=== PATIENT | male | born 1930 | race Caucasian/White ===

== ENCOUNTER 2018-03-26 11:17 | Inpatient (IN) | payer MEDICARE, OTHER ==
[2018-03-26 11:50] LABS: #Basophils 0.1 thou/uL (0.0-0.2); #Eosinphils 0.2 thou/uL (0.0-0.7); #Lymphocytes 3.7 thou/uL (1.20-3.40); #Monocytes 0.9 thou/uL (0.11-0.59); #Neutrophils 9.6 thou/uL (1.40-6.50); %Basophils 0.6 % (0.0-1.0); %Eosinophils 1.2 % (0.0-10.0); %Lymphocytes 25.6 % (21.0-51.0); %Monocytes 6.2 % (0.0-10.0); %Neutrophils 66.5 % (42.0-75.0); Hemoglobin 9.5 g/dL (14.0-18.0); Mean Corpuscular HGB CONC 31.7 g/dL (32.0-36.0); Mean Corpuscular Hemoglobin 27.3 pg (27.0-31.0); Mean Corpuscular Volume 86.3 fL (78.0-98.0); Mean Platelet Volume 9.1 fL (7.4-10.4); Platelet Count 301 thou/uL (130-400); RBC Distribution Width 18.9 % (11.5-14.5); Red Blood Cell (RBC) Count 3.49 mill/uL (4.70-6.10); White Blood Cell (WBC) Count 14.5 thou/uL (4.8-10.8)
[2018-03-26 12:05] LABS: INR-International Normal Ratio 2.5; Prothrombin Time 27.4 SEC (12.0-14.7)
[2018-03-26] MEDS ORDERED: Pantoprazole 40 MG VIAL ONE (12:10)
[2018-03-26 12:13] LABS: ALT (SGPT) 22 U/L (8-55); AST (SGOT) 26 U/L (5-34); Albumin 2.8 g/dL (3.4-4.8); Alkaline Phosphatase 75 U/L (40-150); Anion Gap 13 mmol/L (10-20); BUN (Urea Nitrogen) 42 mg/dL (8.4-25.7); Bilirubin, Total 0.4 mg/dL (0.2-1.2); Calc. Creatinine Clearance 0 mL/min (70-130); Calcium 8.2 mg/dL (7.8-10.44); Carbon Dioxide 22 mmol/L (23-31); Chloride 108 mmol/L (98-107); Estimated GFR-MDRD 48; Globulin 2.9 g/dL (2.4-3.5); Glucose 110 mg/dL (83-110); Potassium 5.2 mmol/L (3.5-5.1); Protein, Total 5.7 g/dL (5.8-8.1); Sodium 138 mmol/L (136-145)
[2018-03-26] MEDS ORDERED: Pantoprazole 80 MG in Sodium Chloride 0.9% 100 ML IVP SCH (12:15)
[2018-03-26 12:16] LABS: Iron 54 ug/dL (65-175); Iron Binding Capacity, Total 275 mcg/dL (261-462)
[2018-03-26 12:22] LABS: PTT 47.4 SEC (22.9-36.1)
[2018-03-26] MEDS ORDERED: ADMIXTURE FEE IV SCH ×2 (12:30→12:45)
[2018-03-26] MEDS ORDERED: HUMAN PROTHROMBIN COMPLX IV SCH ×2 (12:30→12:45)
--- NOTE | 2018-03-26 13:13 | RAD ---
CHEST ONE VIEW: INDICATIONS: History of hemoptysis. COMPARISON: 08/09/2017 FINDINGS/IMPRESSION: There is a persistent right pleural effusion. Mild cardiomegaly is stable. Post CABG changes are st able. The left lung is clear. The osseous structures are unremarkable appearing. IMPRESSION: 1. Persistent small right pleural effusion. No additional changes seen from the comparison dated . 2. Stable mild cardiomegaly. POS: ELIZABETH
[2018-03-26] MEDS ORDERED: Ondansetron PF 4 MG/2 ML Vial ONE (13:33)
[2018-03-26] MEDS ORDERED: Pantoprazole 80 MG in Sodium Chloride 0.9% 100 ML IVPB SCH (14:33)
[2018-03-26] MEDS: Sodium Chloride 0.9% 1,000 ML IV SCH (15:24)
[2018-03-26 16:04] VITALS: BMI 30.2
[2018-03-26 16:09] LABS: Hemoglobin 9.5 g/dL (14.0-18.0)
[2018-03-26 20:19] LABS: Hemoglobin 9.6 g/dL (14.0-18.0)
[2018-03-26] MEDS: ALPRAZolam 0.5 MG TAB PO SCH (20:54)
[2018-03-26 23:20] LABS: Hemoglobin 8.8 g/dL (14.0-18.0)
[2018-03-27 05:44] LABS: Hemoglobin 8.7 g/dL (14.0-18.0)
[2018-03-27 05:47] LABS: INR-International Normal Ratio 1.4; Prothrombin Time 17.4 SEC (12.0-14.7)
[2018-03-27 05:48] LABS: PTT 37.7 SEC (22.9-36.1)
[2018-03-27] MEDS: Sodium Chloride 0.9% 1,000 ML IV SCH ×2 (07:35→10:42)
--- NOTE | 2018-03-27 07:51 | CON ---
DATE OF CONSULTATION: HISTORY OF PRESENT ILLNESS: The patient is an 87-year-old male, who was in normal state of health until today when he had a large amount of blood emesis. Prior to that, he did not have any abdominal pain. He had a large black bowel movement, but had none prior to this. He has a long history of gastroesophageal reflux and esophageal strictures. He is not on anything for gastroesophageal reflux disease. He takes apple cider vinegar, which he says controls his problem. PAST MEDICAL HISTORY: Includes atrial fibrillation, on Xarelto; gastroesophageal reflux disease; esophageal strictures; congestive heart failure; sleep apnea; hypertension; and hyperlipidemia. PAST SURGICAL HISTORY: Includes a BKA and coronary artery bypass. ALLERGIES: NO KNOWN MEDICAL ALLERGIES. MEDICATIONS: Include; 1. Alprazolam 0.5 mg 1 p.o. at bedtime. 2. Aspirin 81 mg 1 p.o. daily. 3. Furosemide 20 mg 1 p.o. daily. 4. Irbesartan 150 mg p.o. once daily. 5. Levaquin 500 mg 1 p.o. daily. 6. Metoprolol 25 mg b.i.d. 7. Lexapro 20 mg 1 p.o. daily. 8. Xarelto 20 mg 1 p.o. daily. SOCIAL HISTORY: He is presently living in a nursing facility. He does not smoke or drink. FAMILY HISTORY: Negative for GI or liver disease. REVIEW OF SYSTEMS: CONSTITUTIONAL: No fever or chills. No weight loss. EYES: No blurred vision or double vision. ENT: No sore throat or earaches. CARDIOVASCULAR: No chest pain or palpitation. PULMONARY: No shortness of breath, cough, or wheezing. GI: See above. : No hematuria or dysuria. MUSCULOSKELETAL: No joint pain or muscle weakness. SKIN: No rashes. NEUROLOGIC: No numbness or seizure activity. PHYSICAL EXAMINATION: GENERAL: Shows a well-developed, well-nourished white male, in no acute distress. VITAL SIGNS: Pulse is 67, blood pressure 126/70, respiratory rate 22, and he is afebrile. HEENT: Unremarkable. NECK: Supple. CHEST: Clear. CARDIOVASCULAR: Regular rate and rhythm. ABDOMEN: Soft and nontender without organomegaly or masses. Bowel sounds present, normoactive. RECTAL: Deferred. EXTREMITIES: Normal. NEUROLOGIC: Nonfocal. LABORATORY DATA: Shows white blood cell count of 14.5, hemoglobin 9.5, and hematocrit 30.1. PT is 27.4 with an INR of 2.5. Chemistries show a potassium 5.2, CO2 of 22, BUN 42, and creatinine 1.40. Iron is 54 with a TIBC 275 and ferritin is 22.7. ASSESSMENT: 1. Hematemesis with melena. 2. History of gastroesophageal reflux disease and esophageal strictures. 3. Atrial fibrillation, on Xarelto. 4. Coronary artery disease. RECOMMENDATIONS: 1. Protonix drip. 2. Agree with reversal of Xarelto. 3. EGD in a.m. unless begins acutely bleed, then we will need to do sooner. 4. Clear-liquid diet. Job ID: [id number]
--- NOTE | 2018-03-27 07:51 | HP ---
CHIEF COMPLAINT: Vomiting blood and passing melena through the rectum. HISTORY OF PRESENT ILLNESS: The patient is an 87-year-old male, assisted resident, who was found to have blood vomiting and melena this morning. He was transferred to the emergency room at [facility] in [place], where he was found to be hypotensive, and since he is anticoagulated with Xarelto with elevated PT, INR, and APTT, the antidote medications are ordered, and he is getting admitted to the hospital for further management of his problem. PAST MEDICAL HISTORY: 1. Hypertension. 2. CHF. 3. GERD. 4. Hyperlipidemia. 5. Peripheral vascular disease. 6. Coronary artery disease. 7. Chronic atrial fibrillation. PAST SURGICAL HISTORY: 1. Fem-pop. 2. Right [id number]-[id number] amputation. 3. CABG x3. MEDICATIONS: 1. Irbesartan 150 mg once a day. 2. Metoprolol tartrate 25 mg twice a day. 3. Furosemide 20 mg once a day. 4. Lexapro 20 mg every morning. 5. Aspirin 81 mg once a day. 6. Zetia 10 mg at bedtime. 7. Xarelto 20 mg at bedtime. 8. Xanax 0.5 mg at bedtime. 9. Tylenol No. 3 p.r.n. as needed. ALLERGIES: NONE. SOCIAL HISTORY: He used to smoke, but quit 30 years ago. He does not drink or use any illicit drugs. FAMILY HISTORY: Mother had pancreatic cancer. Father had lung cancer. REVIEW OF SYSTEMS: All 14 systems were reviewed, and the symptoms were negative except for pain in his stump and back and some cough for the last couple of days. He is otherwise negative for everything else based on ROS review with the family. PHYSICAL EXAMINATION: VITAL SIGNS: Blood pressure is 79/48, pulse is 76, respiratory rate is 10, pulse oximetry is 99% on O2. HEENT: His head is atraumatic, normocephalic. His skin of the face looks somewhat palish. Conjunctivae are somewhat palish. Pupils are normal and responding to light properly. Sclerae are nonicteric. Oral mucosa is somewhat dry. NECK: Supple. No lymphadenopathy. No JVD. LUNGS: Clear. HEART: S1 and S2, somewhat irregularly irregular. No S3. No S4. ABDOMEN: Soft, nondistended, obese. Bowel sounds are present. No organomegaly. EXTREMITIES: Right [id number] amputation. There is a bruise on the stump. Left lower extremity; pulses on tibialis posterior and dorsalis pedis arteries are significantly diminished. 1+ peripheral edema on the left side. NEUROLOGIC: He is alert and oriented x3. There are no any motor deficits or sensory deficits. Cranial nerves are within normal limits. LABORATORY DATA: Labs showed white count of 14.5, hemoglobin 9.5, hematocrit 30.1, platelet count is 301,000. PT 27.4, INR 2.5, APTT 47.4. Sodium 138, potassium 5.2, chloride 108, CO2 of 22, BUN 42, creatinine 1.4. Iron 54. Ferritin 22.7. Total protein 5.7, albumin 2.8. Total iron-binding capacity is 275. Microbiology; fecal occult blood test, positive. Chest x-ray, the patient is rotated to the right side. He might have some pleural effusion on the right side. Otherwise, there is no any acute cardiopulmonary disease. IMPRESSION: 1. Acute gastrointestinal bleeding secondary to unknown source. At this point, the patient is on Xarelto, so he is in high risk for the bleed from his GI tract. 2. Acute hypovolemic shock. The patient is getting IV fluids, normal saline, and he is going to have 1 unit of packed red blood cells and will have 2 units put on hold. He is DNR and DNI. 3. Anemia secondary to acute blood loss, and he might have some underlying chronic anemia. Iron studies showed low ferritin, low iron levels, but low total iron-binding capacity too, which suggests some kind of chronic anemia. 4. History of congestive heart failure. 5. Coronary artery disease, stable. 6. Peripheral vascular disease. 7. Gastroesophageal reflux disease. 8. Hyperlipidemia. 9. Atrial fibrillation. PLAN: Admission to intensive care unit. Condition is critical. IV fluids, normal saline at steady rate of 100 plus boluses, and transfusion of packed red blood cells as needed. GI consultation with Dr. Flanagan. He was notified by the emergency room physician. We are transfusing the patient with antidote for his anticoagulant, factor VIII complex. He will be on n.p.o., and Protonix drip is ordered. He received 80 mg IV push of Protonix in the emergency room, and the patient is DNR and DNI. Discussed with the family. Job ID: [id number]
[2018-03-27] MEDS: Escitalopram Oxalate 20 mg Tablet PO SCH (10:42)
--- NOTE | 2018-03-27 10:45 | PDOC.PN ---
- Subjective Encounter Start Date: 03/27/18 Encounter Start Time: 10:43 Mr. Dunne was seen today in follow-up of GI bleed. He does not have any complaints other than he feels sleepy. - Objective Resuscitation Status - Order Detail: 03/26/18 13:08 Resuscitation Status Routine Resuscitation Status: DNAR: NO Resuscitation Discussed with: family MAR Reviewed: Yes Vital Signs & Weight: Vital Signs (12 hours) Temp Pulse Ox 03/27/18 07:14 100 03/27/18 07:00 97.8 F 03/27/18 04:00 98.0 F 03/27/18 00:00 98.2 F Weight Weight 210 lb 5.136 oz Most Recent Monitor Data Heart Rate from ECG 89 NIBP 126/56 NIBP BP-Mean 79 Respiration from ECG 20 SpO2 100 I&O: 03/26/18 03/27/18 03/28/18 06:59 06:59 06:59 Intake Total 1351 Output Total 800 350 Balance 551 -350 Result Diagrams: 03/27/18 05:15 03/26/18 11:30 Phys Exam - Physical Examination HEENT: PERRLA Respiratory: no wheezing, no rales, clear to auscultation bilateral + occassional rhonchi Cardiovascular: RRR, no significant murmur, no rub Gastrointestinal: soft, non-tender, positive bowel sounds Musculoskeletal: no edema Dx/Plan (1) Gastric ulcer with hemorrhage Code(s): K25.4 - CHRONIC OR UNSPECIFIED GASTRIC ULCER WITH HEMORRHAGE Status: Acute (2) Atrial fibrillation Code(s): I48.91 - UNSPECIFIED ATRIAL FIBRILLATION Status: Chronic (3) CAD (coronary artery disease) Code(s): I25.10 - ATHSCL HEART DISEASE OF [place] CORONARY ARTERY W/O ANG PCTRS Status: Chronic (4) HTN (hypertension) Code(s): I10 - ESSENTIAL (PRIMARY) HYPERTENSION Status: Chronic (5) Acute blood loss anemia Code(s): D62 - ACUTE POSTHEMORRHAGIC ANEMIA Status: Acute - Plan * GI_ bleed- due to a large Gastric Ulcer- this was cauterized during endoscopy , and will continue the Protonix drip * Will continue to Hold Xarelto * HTN- blood pressure is a bit elevated- will monitor * AFIB- his heart rate has been stable.
--- NOTE | 2018-03-27 12:22 | OP ---
DATE OF PROCEDURE: 03/27/2018 PREOPERATIVE DIAGNOSIS: Gastrointestinal bleed. DESCRIPTION OF PROCEDURE: After informed consent was obtained, the patient was placed in left lateral decubitus position. Anesthesia was administered per the Anesthesia Department. Forward-viewing endoscope was inserted into esophagus under direct visualization with ease and passed to the second portion of duodenum with ease. Second portion of duodenum and duodenal bulb were normal except for some mild duodenitis. No visible vessels or active bleeding were seen. Pylorus, antrum, body, fundus, and cardia were normal. Retroflexion in stomach showed a hiatal hernia. The distal esophagus showed severe circumferential erosive esophagitis. In the area of esophagus, there was some deep ulceration and some active bleeding and visible vessel. These were cauterized with 10-Gambian cautery probe with good hemostasis. ASSESSMENT: 1. Severe erosive esophagitis, grade D. 2. Esophageal ulceration with visible vessel and some active bleeding - status post BICAP electrocautery. 3. Hiatal hernia. 4. Mild duodenitis. RECOMMENDATIONS: 1. Change Protonix to p.o. and continue middle or intermediate school principal. 2. Resume Xarelto in one week. 3. Stable for discharge from GI standpoint. Job ID: [id number]
[2018-03-27] MEDS ORDERED: PROPOFOL 200 MG/20 ML VIAL ONE (14:38)
[2018-03-27] MEDS ORDERED: Lidocaine 1% PF 5 ML VIAL ONE (14:38)
--- NOTE | 2018-03-27 17:30 | CON ---
DATE OF CONSULTATION: 03/27/2018 SERVICE: Pulmonary Medicine REASON FOR CONSULT: ICU patient. HISTORY OF PRESENT ILLNESS: The patient is an 87-year-old white male with past medical history significant for essentially nothing. He ended up passing out and had multiple bowel movements with melena coming per rectum. He presented to the emergency department. He had a low blood pressure. He is on anticoagulation with Xarelto and his INR and PTT were both elevated. Ultimately, an EGD was performed demonstrating the bleeding ulcer. Hemostasis was achieved. The patient was given a couple of units of blood overnight, and his hemodynamics stabilized. At this point, he denies having any chest pain, fevers, chills, nausea, vomiting, or shortness of breath. He is not having any dizziness or lightheadedness. PAST MEDICAL HISTORY: 1. Hypertension. 2. CHF. 3. Gastroesophageal reflux disease. 4. Dyslipidemia. 5. Peripheral vascular disease. 6. Coronary artery disease. 7. Atrial fibrillation. 8. Peptic ulcer disease. PAST SURGICAL HISTORY: 1. Femoral-popliteal bypass. 2. Right below-knee amputation. 3. Coronary artery bypass graft x3 vessels. ALLERGIES: NO KNOWN DRUG ALLERGIES. MEDICATIONS: List of his inpatient medications was reviewed. No updates were made at this time. SOCIAL HISTORY: Negative for alcohol, tobacco, or illicit drug use. He has a remote history of smoking, but quit over 30 years ago. Prior to that, he had a 30 pack-year history of smoking. FAMILY HISTORY: Noncontributory. REVIEW OF SYSTEMS: General, head, ears, eyes, nose, throat, cardiovascular, respiratory, GI, musculoskeletal, neurologic, and skin are negative except as mentioned in the HPI. PHYSICAL EXAMINATION: VITAL SIGNS: Afebrile, pulse 82, blood pressure 145/76, respirations 20, and saturation 100% on 2 L nasal cannula. GENERAL: The patient is awake and alert, in no apparent distress. LUNGS: Excellent air entry. There is a slightly prolonged expiratory phase, but no wheezing present. Rhonchi are there, but clear with cough. HEART: Normal rate and regular. ABDOMEN: Soft, nontender, and nondistended. Bowel sounds are positive. MUSCULOSKELETAL: No cyanosis or clubbing. No pitting in the bilateral lower extremities. NEUROLOGIC: Grossly nonfocal. LABORATORY DATA: WBC 14.5 and hemoglobin 8.7 and stable and platelets 301,000. INR 1.4. Creatinine 1.4, which is likely his baseline. Liver function studies are essentially unremarkable. Iron levels are low. ASSESSMENT: 1. Acute blood loss anemia. 2. Esophagitis, grade D with bleeding ulcer. 3. Chronic kidney disease. DISCUSSION AND PLAN: The patient is doing fine. We will continue to trend his hemoglobins through time. I will repeat a CBC and a basic metabolic profile in the morning. Pulmonary Critical Care will continue to follow in this location, but from my perspective, if this was a low risk rebleed, he is stable for transition to the floor. 70 minutes have been devoted to this patient in various activities. I personally reviewed all imaging studies and laboratory data noted within this document. For fifty percent of this time, I was interacting with the patient at the bedside or coordinating care with the care team. For the remainder of the time I was immediately available to the patient in the hospital unit. Job ID: [id number] MTDD
[2018-03-27] MEDS: ALPRAZolam 0.5 MG TAB PO SCH (20:09)
[2018-03-28 04:33] LABS: #Eosinphils 0.3 thou/uL (0.0-0.7); #Monocytes 0.6 thou/uL (0.11-0.59); #Neutrophils 6.8 thou/uL (1.40-6.50); %Basophils 0.3 % (0.0-1.0); %Eosinophils 2.6 % (0.0-10.0); %Lymphocytes 20.8 % (21.0-51.0); %Monocytes 5.9 % (0.0-10.0); %Neutrophils 70.4 % (42.0-75.0); Mean Corpuscular Hemoglobin 28.1 pg (27.0-31.0); Mean Corpuscular Volume 87.7 fL (78.0-98.0); Mean Platelet Volume 8.9 fL (7.4-10.4); Platelet Count 216 thou/uL (130-400); RBC Distribution Width 18.6 % (11.5-14.5); Red Blood Cell (RBC) Count 2.86 mill/uL (4.70-6.10); White Blood Cell (WBC) Count 9.7 thou/uL (4.8-10.8)
[2018-03-28 04:47] LABS: Anion Gap 10 mmol/L (10-20); BUN (Urea Nitrogen) 36 mg/dL (8.4-25.7); Calc. Creatinine Clearance 62 mL/min (70-130); Calcium 7.9 mg/dL (7.8-10.44); Carbon Dioxide 20 mmol/L (23-31); Chloride 114 mmol/L (98-107); Estimated GFR-MDRD 64; Glucose 78 mg/dL (83-110); Sodium 140 mmol/L (136-145)
[2018-03-28 07:27] VITALS: BP 158/72; TEMP 98.1
[2018-03-28] MEDS: Escitalopram Oxalate 20 mg Tablet PO SCH (08:37)
--- NOTE | 2018-03-28 12:31 | PDOC.PN ---
- Subjective Encounter Start Date: 03/28/18 Encounter Start Time: 12:30 Mr. Dunne was seen today in follow-up of Gastric ulcer with bleed. He says he feels fine, and has not had any further bleeding. - Objective Resuscitation Status - Order Detail: 03/26/18 13:08 Resuscitation Status Routine Resuscitation Status: DNAR: NO Resuscitation Discussed with: family MAR Reviewed: Yes Vital Signs & Weight: Vital Signs (12 hours) Temp Pulse Resp BP Pulse Ox 03/28/18 08:00 94 L 03/28/18 07:24 98.1 F 108 H 20 158/72 H 94 L 03/28/18 04:31 97.8 F 106 H 18 135/62 93 L Weight Weight 210 lb 5.136 oz Most Recent Monitor Data Heart Rate from ECG 81 NIBP 140/76 NIBP BP-Mean 97 Respiration from ECG 21 SpO2 100 I&O: 03/27/18 03/28/18 03/29/18 06:59 06:59 06:59 Intake Total 1351 1516 480 Output Total 800 600 Balance 551 916 480 Result Diagrams: 03/28/18 03:13 03/28/18 03:13 Phys Exam - Physical Examination HEENT: PERRLA Respiratory: no wheezing, no rales, no rhonchi, clear to auscultation bilateral Cardiovascular: RRR, no significant murmur, no rub Gastrointestinal: soft, non-tender, no distention, positive bowel sounds Musculoskeletal: no edema Dx/Plan (1) Gastric ulcer with hemorrhage Code(s): K25.4 - CHRONIC OR UNSPECIFIED GASTRIC ULCER WITH HEMORRHAGE Status: Acute (2) Atrial fibrillation Code(s): I48.91 - UNSPECIFIED ATRIAL FIBRILLATION Status: Chronic (3) CAD (coronary artery disease) Code(s): I25.10 - ATHSCL HEART DISEASE OF [place] CORONARY ARTERY W/O ANG PCTRS Status: Chronic (4) HTN (hypertension) Code(s): I10 - ESSENTIAL (PRIMARY) HYPERTENSION Status: Chronic (5) Acute blood loss anemia Code(s): D62 - ACUTE POSTHEMORRHAGIC ANEMIA Status: Acute - Plan * Gastric ulcer with hemorrhage- his H&H has been stable * Will hold Xarelto for 7 days * Stable for discharge home.
--- NOTE | 2018-03-29 11:56 | DIS ---
DATE OF ADMISSION: 03/26/2018 DATE OF DISCHARGE: 03/28/2018 PRIMARY CARE PHYSICIAN: Dr. Chilango Kuhn. DISCHARGE DISPOSITION: Back to the [facility]. DISCHARGE DIAGNOSES: 1. Gastric ulcer with hemorrhage. 2. Acute blood loss anemia. 3. Hypertension. 4. Hyperlipidemia. 5. Peripheral vascular disease. 6. Coronary artery disease. 7. Atrial fibrillation. DISCHARGE MEDICATIONS: 1. Please note that Xarelto is on hold for the next 7 days. 2. Continue Protonix 40 mg twice a day for 30 days, then 40 mg daily. 3. Lopressor 25 mg twice a day. 4. Garlic one tablet daily. 5. Lasix 20 mg daily. 6. Lexapro 20 mg daily. 7. Vitamin C 1000 mg daily. 8. Xanax 0.5 to 1 mg t.i.d. as needed. 9. Extra Strength Tylenol 1 g q.6 as needed. PROCEDURES DONE DURING THE ADMISSION: The patient had an upper endoscopy, which demonstrated a large gastric ulcer as well as severe grade D esophagitis. The esophageal ulcer showed an active bleeding vessel, which was cauterized. CODE STATUS: DNAR. ALLERGIES: NO KNOWN DRUG ALLERGIES. HOSPITAL COURSE: Mr. Dunne is a pleasant 87-year-old gentleman, who presented to the emergency room after vomiting blood and having melena. He was also feeling extremely weak. He is on Xarelto for atrial fibrillation. This was held and he was given Kcentra in the ER as well as transfused a unit of blood. He was seen by Gastroenterology and underwent upper endoscopy showing the gastritis, which was severe grade D as well as the esophageal ulcer. He underwent cauterization of the ulcer with hemostasis and his hemoglobin remained stable. He was monitored overnight and stable and was subsequently able to be discharged back to the long term in stable condition. Job ID: [id number]
--- NOTE | 2018-04-01 14:22 | EKG ---
Test Reason : CP Blood Pressure : / mmHG Vent. Rate : 092 BPM Atrial Rate : 097 BPM P-R Int : 000 ms QRS Dur : 114 ms QT Int : 384 ms P-R-T Axes : 000 073 -44 degrees QTc Int : 474 ms Atrial fibrillation Nonspecific T wave abnormality , probably digitalis effect Prolonged QT Abnormal ECG Confirmed by BEN ACEVES, SADAF ([id number]), slot editor CRISTELA NEGRO ([id number]) on 04/01/2018 2:21:30 PM Referred By: Confirmed By:SADAF CONTRERAS MD
--- NOTE | 2018-04-04 08:01 | PQF ---
SAP Site Technician Crystal Reports Winform ViewerSHIRAZ GARCIA ZBIGNIEW A MD [id number] [facility] [id number] CLINICAL DOCUMENTATION CLARIFICATION FORM: POST DISCHARGE Addendum to original discharge summary date: ____ Late entry note date: __ Please exercise your independent, professional judgment in responding to the clarification form. Clinical indicators are provided on the bottom of this form for your review Please check appropriate box(s): [ ] Upper Gastrointestinal Ulcer: Acuity:[ x ] Acute [ ] Chronic [ x] Hemorrhage -or-[ ] No Hemorrhage [ ] Perforation -or- [x ] No Perforation Type:[ ] Gastric Ulcer [ x ] Esophageal Ulcer [ ] Other location [ ] Any related or contributing disease(s) Alcohol or drugs: [ x ] Other diagnosis gastric ulcer [ ] Unable to determine In addition, please specify: Present on Admission (POA): [ x ] Yes [ ] No [ ] Unable to determine For continuity of documentation, please document condition throughout progress notes and discharge summary. Thank You. CLINICAL INDICATORS - SIGNS / SYMPTOMS / LABS Coffee ground emesis- H&P Melena- H&P Gastric ulcer with hemorrhage- D/S, pn 03/27 and 03/28 Esophageal Ulcer with hemorrhage- EGD report, D/S at the end RISK FACTORS anticoagulation- H&P TREATMENTS: Transfusion- given on 03/26 EGD and cautery on 03/27 SAP Site Technician Crystal Reports Winform Viewer (This form is maintained as a part of the permanent medical record) 2014 [employer]. All Rights Reserved [email or web address] [email or web address] [phone] [facility]
== END 2018-03-28 15:47 | DRG 380 ==
LOC: ERS 11:17 → CCU 15:17 → T4-A 03-27 17:25
PROVIDERS: ADMIT Internal Medicine; ATTEND Internal Medicine
PROC: 30233N1 Transfusion of Nonautologous Red Blood Cells into Peripheral Vein, Percutaneous Approach (ICD-10-PCS; 2018-03-26)
PROC: 0W3P8ZZ Control Bleeding in Gastrointestinal Tract, Via Natural or Artificial Opening Endoscopic (ICD-10-PCS; principal; 2018-03-27)
DX: K22.11 Ulcer of esophagus with bleeding (principal); R57.1 Hypovolemic shock; D62 Acute posthemorrhagic anemia; K25.4 Chronic or unspecified gastric ulcer with hemorrhage; I11.0 Hypertensive heart disease with heart failure; I50.9 Heart failure, unspecified; K21.9 Gastro-esophageal reflux disease without esophagitis; E78.5 Hyperlipidemia, unspecified; I73.9 Peripheral vascular disease, unspecified; I25.10 Atherosclerotic heart disease of native coronary artery without angina pectoris; I48.2 Chronic atrial fibrillation; Z66 Do not resuscitate; K29.80 Duodenitis without bleeding; K44.9 Diaphragmatic hernia without obstruction or gangrene; K29.70 Gastritis, unspecified, without bleeding; Z79.82 Long term (current) use of aspirin; Z79.01 Long term (current) use of anticoagulants; Z87.891 Personal history of nicotine dependence; Z89.511 Acquired absence of right leg below knee; Z95.1 Presence of aortocoronary bypass graft; Z80.1 Family history of malignant neoplasm of trachea, bronchus and lung; Z80.8 Family history of malignant neoplasm of other organs or systems
CPT/HCPCS: 36415; 36430; 71045; 80048; 80053; 82274; 82728; 83540; 83550; 85014; 85018; 85025; 85610; 85730; 86850; 86900; 86901; 90471; 90662; 93005; 96361; 96365; 96367; 96374; 96376; C9113; C9132; G0008; J2001; J2405; J2704; J7050; P9016

== ENCOUNTER 2018-04-10 16:58 | Observation (INO) | payer MEDICARE, OTHER ==
[2018-04-10 17:47] LABS: #Basophils 0.1 thou/uL (0.0-0.2); #Eosinphils 0.2 thou/uL (0.0-0.7); #Lymphocytes 2.1 thou/uL (1.20-3.40); #Monocytes 0.6 thou/uL (0.11-0.59); #Neutrophils 5.4 thou/uL (1.40-6.50); %Basophils 1.1 % (0.0-1.0); %Eosinophils 2.2 % (0.0-10.0); %Monocytes 7.2 % (0.0-10.0); %Neutrophils 64.5 % (42.0-75.0); Hemoglobin 7.5 g/dL (14.0-18.0); Mean Corpuscular HGB CONC 31.4 g/dL (32.0-36.0); Mean Corpuscular Hemoglobin 28.3 pg (27.0-31.0); Mean Corpuscular Volume 90.1 fL (78.0-98.0); Mean Platelet Volume 7.9 fL (7.4-10.4); Platelet Count 330 thou/uL (130-400); RBC Distribution Width 19.1 % (11.5-14.5); Red Blood Cell (RBC) Count 2.66 mill/uL (4.70-6.10); White Blood Cell (WBC) Count 8.3 thou/uL (4.8-10.8)
[2018-04-10 17:53] LABS: INR-International Normal Ratio 2.1; PTT 47.5 SEC (22.9-36.1); Prothrombin Time 23.6 SEC (12.0-14.7)
[2018-04-10 18:12] LABS: ALT (SGPT) 12 U/L (8-55); AST (SGOT) 20 U/L (5-34); Alkaline Phosphatase 77 U/L (40-150); Anion Gap 13 mmol/L (10-20); BUN (Urea Nitrogen) 33 mg/dL (8.4-25.7); Bilirubin, Total Less than 0.2 mg/dL (0.2-1.2); Calc. Creatinine Clearance 0 mL/min (70-130); Calcium 8.1 mg/dL (7.8-10.44); Carbon Dioxide 21 mmol/L (23-31); Chloride 106 mmol/L (98-107); Estimated GFR-MDRD 40; Glucose 85 mg/dL (83-110); Potassium 4.4 mmol/L (3.5-5.1); Sodium 136 mmol/L (136-145)
[2018-04-10] MEDS ORDERED: Pantoprazole 40 MG VIAL ONE (19:34)
[2018-04-10 21:06] LABS: Bilirubin Negative (Negative); Blood, Urine Negative (Negative); Clarity CLEAR (Clear); Glucose, Urine (Dipstick) Negative (Negative); Leukocyte Trace (Negative); Nitrite Negative (Negative); Protein, Urine (Dipstick) Negative (Neg-Trace); Specific Gravity, Urine 1.013 (1.002-1.036); Urobilinogen 0.2 mg/dL (0.2-1.0)
[2018-04-10 21:08] LABS: Bacteria/HPF None Seen HPF (None Seen); Hyaline Casts/LPF 0-3 HYALINE CAST LPF (0-3 Hyaline); Pathc Cast-AUWi Flag 0.14 (0-2.49); RBC/HPF None Seen HPF (0-3); Squamous Epithelial None Seen HPF (0-3); WBC/HPF 0-3 HPF (0-3)
[2018-04-10] MEDS ORDERED: Ondansetron ODT 4 MG TAB PO PRN (21:54)
[2018-04-10] MEDS ORDERED: Ondansetron PF 4 MG/2 ML Vial IVP PRN (21:54)
[2018-04-10] MEDS ORDERED: Senokot S 8.6-50 MG TAB PO PRN (21:54)
[2018-04-10] MEDS ORDERED: Acetaminophen 325 MG TAB PO PRN (21:54)
[2018-04-10] MEDS ORDERED: Bisacodyl 5 MG TAB PO PRN (21:54)
[2018-04-10] MEDS ORDERED: Zolpidem Tartrate 5 MG TAB PO PRN (21:54)
[2018-04-10] MEDS ORDERED: ALPRAZolam 0.5 MG TAB PO PRN (21:58)
[2018-04-11 00:20] VITALS: BMI 31.4
[2018-04-11] MEDS: Sodium Chloride 0.9% 1,000 ML IV SCH ×2 (01:04→01:57)
[2018-04-11] MEDS: Acetaminophen/Codeine 30-300mg Tablet PO PRN ×3 (01:56→19:57)
[2018-04-11 05:14] LABS: #Basophils 0.1 thou/uL (0.0-0.2); #Eosinphils 0.2 thou/uL (0.0-0.7); #Lymphocytes 2.1 thou/uL (1.20-3.40); #Monocytes 0.6 thou/uL (0.11-0.59); #Neutrophils 4.9 thou/uL (1.40-6.50); %Basophils 0.7 % (0.0-1.0); %Eosinophils 2.3 % (0.0-10.0); %Lymphocytes 26.6 % (21.0-51.0); %Monocytes 7.4 % (0.0-10.0); %Neutrophils 62.9 % (42.0-75.0); Hemoglobin 7.5 g/dL (14.0-18.0); Mean Corpuscular HGB CONC 32.4 g/dL (32.0-36.0); Mean Corpuscular Hemoglobin 29.1 pg (27.0-31.0); Mean Corpuscular Volume 89.7 fL (78.0-98.0); Mean Platelet Volume 7.8 fL (7.4-10.4); Platelet Count 272 thou/uL (130-400); RBC Distribution Width 18.1 % (11.5-14.5); Red Blood Cell (RBC) Count 2.58 mill/uL (4.70-6.10); White Blood Cell (WBC) Count 7.8 thou/uL (4.8-10.8)
[2018-04-11 05:39] LABS: Albumin 2.6 g/dL (3.4-4.8); Anion Gap 11 mmol/L (10-20); BUN (Urea Nitrogen) 30 mg/dL (8.4-25.7); BUN/Creatinine Ratio 20.69; Calc. Creatinine Clearance 50 mL/min (70-130); Calcium 7.8 mg/dL (7.8-10.44); Carbon Dioxide 21 mmol/L (23-31); Chloride 110 mmol/L (98-107); Estimated GFR-MDRD 46; Glucose 79 mg/dL (83-110); Phosphorus 3.2 mg/dL (2.3-4.7); Potassium 4.2 mmol/L (3.5-5.1); Sodium 138 mmol/L (136-145)
[2018-04-11] MEDS ORDERED: Pantoprazole 40 MG VIAL IVP SCH (09:00)
--- NOTE | 2018-04-11 09:26 | HP ---
HISTORY OF PRESENT ILLNESS: This is an 87-year-old male with past medical history significant for hypertension, hyperlipidemia, atrial fibrillation, GERD, congestive heart failure, and obstructive sleep apnea, presenting with low hemoglobin, which was seen on CBC that was ordered, and the patient was referred to come to our facility to be evaluated and treated. The patient was brought in by EMS for critical lab values, and the patient reports that he has been having bleeding ulcer past couple of weeks ago. Per the patient, he had the lab work done, and it was found that the patient's hemoglobin was 6.6 that prompted the patient to come to our ED. The patient is on aspirin which he takes daily. At this point, the patient denies that he has any abdominal pain, any nausea, vomiting of blood, any hematochezia, hematuria, or melena. Of note, the patient was recently in the hospital on 03/26/2018. The patient was treated for gastric ulcer with hemorrhage. The patient also had anemia of acute blood loss. During the hospital stay, the patient's Xarelto that he takes for atrial fibrillation was held and the patient was transfused units of blood. The patient was seen by see wheeler. The patient then underwent upper endoscopy which showed gastritis. The patient's gastritis was noted to be severe grade D, and there was also esophageal ulcer. Photo Graphics Librarian cauterized the patient's ulcer, and the patient's hemoglobin was then stable at the time. At this point, the patient is coming in with anemia of 6.6. REVIEW OF SYSTEMS: Positive for generalized weakness. Otherwise as documented in the HPI, all other systems have been reviewed and are negative. PAST MEDICAL HISTORY: Hypercholesterolemia, atrial fibrillation, GERD, CHF, and sleep apnea. FAMILY HISTORY: Reviewed and noncontributory to this visit. PAST SURGICAL HISTORY: Right BKA, hernia repair, and CABG. SOCIAL HISTORY: The patient denies illicit drug use, denies any alcohol use, and denies any smoking history. ALLERGIES: NO KNOWN DRUG ALLERGIES. CURRENT MEDICATIONS: The patient takes; 1. Aspirin. 2. Furosemide. 3. Irbesartan. 4. Levaquin. 5. Metoprolol. 6. Lexapro. 7. Xarelto. 8. Zetia. PHYSICAL EXAMINATION: VITAL SIGNS: The patient's blood pressure is 139/62, pulse of 79, respiratory rate of 20, temperature of 98.6, and O2 saturation of 98. GENERAL: The patient is lying in bed, does not appear to be in any acute distress. The patient to have a CPAP machine on. The patient is able to speak to me in full sentences. Alert and oriented x3. HEENT: Normocephalic, atraumatic. Pupils are equally round and reactive to light. Extraocular movements are intact. No scleral icterus. Mucous membranes are dry. NECK: Trachea is midline. Full range of motion. No JVD. LUNGS: Clear to auscultation bilaterally. CARDIAC: Positive S1 and S2. Regular rate and rhythm. No murmurs, no gallops, and no rubs appreciated. ABDOMEN: Soft, nontender, and nondistended. Positive bowel sounds in all quadrants. The patient stated that a rectal exam was done, which showed no gross blood. EXTREMITIES: Upper extremities, 5/5 upper extremity strength. Good pulses bilaterally. Lower extremities, the patient has a right BKA and for the left leg, the patient does have some 2+ pitting edema noted. The patient has good strength in the left lower extremity and good pulses. SKIN: Warm, dry, and intact. DIAGNOSTIC DATA: A 12-lead shows atrial fibrillation. LABORATORY DATA: WBC is 8.3, hemoglobin is 7.5, hematocrit is 24.0, RDW of 19, and MCV is 90.1. Coagulation: PT is 23.6, INR is 2.1, and PTT is 47.5. Sodium is 135, potassium is 4.4, chloride is 106, carbon dioxide of 21, anion gap of 13, BUN is 33, creatinine is 1.64, GFR is 40, lactic acid is 1.3, and calcium is 8.1. Urinalysis, trace leukocyte esterase. ASSESSMENT AND PLAN: This is an 87-year-old male with past medical history of gastric ulcer, now presenting with; 1. Anemia of acute blood loss. At this point, the patient states that he does not have any hematemesis, hematochezia, or melena. However, the patient's hemoglobin is 7.5 and has dropped from his baseline. The patient is going to be transfused a unit of blood, and we are going to consult GI to further evaluate the patient. We will continue to monitor the patient closely, and we will do H and H every 6 hours to monitor the patient's hemoglobin. The patient is on Xarelto and aspirin. At this point, we are going to discontinue Xarelto and aspirin. We are going to continue the patient on Protonix. 2. Atrial fibrillation, on Xarelto. At this point, we are going to discontinue the patient's Xarelto, and we are going to continue to monitor the patient. We will restart the patient's Xarelto after patient's H and H has been stabilized. 3. Acute on chronic kidney disease. At this point, the patient's creatinine is 1.64, which is not at the baseline. At this point, we are going to continue the patient on IV fluids. We will run one bag of IV fluids, and then we will discontinue the patient's IV fluids. We will continue to monitor the patient closely, and we will follow up on morning labs. 4. Asymptomatic urinary tract infection. The patient does have trace leukocyte esterase, but the patient not complaining of any urinary tract infection symptoms. We will monitor the patient. 5. Hypertension. We will monitor the patient's blood pressure closely, and we will adjust the patient's blood pressure accordingly. 6. Hyperlipidemia. We will continue the patient on his home medications. 7. History of congestive heart failure. At this point, the patient is not in acute failure. We will continue to monitor the patient closely. 8. Obstructive sleep apnea. The patient is currently on his CPAP machine. We will continue the patient on his CPAP machine. 9. Deep venous thrombosis and gastrointestinal prophylaxis. Job ID: [id number]
[2018-04-11] MEDS: Escitalopram Oxalate 10 mg Tablet PO SCH (09:35)
[2018-04-11] MEDS: Benzonatate 100 MG CAP PO SCH ×3 (09:35→19:58)
[2018-04-11] MEDS: Ascorbic Acid 500 mg Chewable Tablet PO SCH (09:35)
[2018-04-11] MEDS: Ferrous Sulfate 325 MG TAB PO SCH (09:36)
[2018-04-11] MEDS: Metoprolol Tartrate 25 MG TAB PO SCH ×2 (09:36→19:58)
[2018-04-11] MEDS: guaiFENesin ER 600 MG TAB PO SCH ×2 (09:36→19:58)
[2018-04-11] MEDS: Lactinex Tablet PO SCH (09:36)
--- NOTE | 2018-04-11 17:01 | PDOC.PN ---
- Subjective Encounter Start Date: 04/11/18 Encounter Start Time: 17:00 Subjective: f/u for GI bleed from gastric ulcer and esophagitis on Xarelto -: and ASA. s/p 1u PRBC's, feels ok. No other complaints - Objective Resuscitation Status - Order Detail: 04/11/18 01:02 Resuscitation Status Routine Resuscitation Status: DNAR: NO Resuscitation Discussed with: advance directive MAR Reviewed: Yes Vital Signs & Weight: Vital Signs (12 hours) Temp Pulse Resp BP Pulse Ox 04/11/18 16:12 97.9 F 78 18 118/58 L 95 04/11/18 12:03 98.1 F 77 18 123/60 95 04/11/18 07:48 97.7 F 83 19 138/64 95 Weight Weight 225 lb 9.6 oz Result Diagrams: 04/11/18 04:28 04/11/18 04:28 Additional Labs: Microbiology 04/10/18 17:03 Stool - Pending Stool Occult Blood ([facility]) - Final 04/10/18 20:35 Urine voided Urine Culture - Preliminary NO GROWTH AT 12 HOURS Laboratory Tests 03/27/18 03/28/18 04/10/18 05:15 03:13 17:35 Hgb 8.7 L 8.0 L PT 23.6 H INR 2.1 BUN Creatinine 04/10/18 04/10/18 17:35 17:35 Hgb 7.5 L PT INR BUN 33 H Creatinine 1.64 H EKG Reviewed by me: Yes (Tele - A-fib in 60's) Phys Exam - Physical Examination Constitutional: NAD HEENT: PERRLA, sclera anicteric, oral pharynx no lesions Neck: no nodes, no JVD, supple, full ROM Respiratory: no wheezing, no rales, no rhonchi, clear to auscultation bilateral S1, S2 Cardiovascular: no significant murmur, no rub, gallop, irregular Gastrointestinal: soft, non-tender, no distention, positive bowel sounds Musculoskeletal: pulses present Neurological: normal sensation, moves all 4 limbs Psychiatric: A&O x 3 Skin: normal turgor, cap refill <2 seconds Dx/Plan (1) Gastric ulcer with hemorrhage Code(s): K25.4 - CHRONIC OR UNSPECIFIED GASTRIC ULCER WITH HEMORRHAGE Status: Acute Qualifiers: Gastric ulcer chronicity: acute Qualified Code(s): K25.0 - Acute gastric ulcer with hemorrhage Comment: + gastric ulcer and Grade D esophagitis, d/c all anticoagulants, risk is too high for recurrent bleeding, Protonix (2) Acute blood loss anemia Code(s): D62 - ACUTE POSTHEMORRHAGIC ANEMIA Status: Acute Comment: s/p 1u PRBC's, serial H/H, avoid anticoagulation (3) Atrial fibrillation Code(s): I48.91 - UNSPECIFIED ATRIAL FIBRILLATION Status: Chronic Qualifiers: Atrial fibrillation type: chronic Qualified Code(s): I48.2 - Chronic atrial fibrillation Comment: Rate controlled, no anticoagulation due to recurrent GI bleeding/ulcer (4) CAD (coronary artery disease) Code(s): I25.10 - ATHSCL HEART DISEASE OF [place] CORONARY ARTERY W/O ANG PCTRS Status: Chronic Comment: Chronic, stable, continue general med mgmt - Plan PT/OT, social media manager, out of bed/ambulate Stable currently -: GI consult pending -: Protonix 40mg BID -: Avoid anticoagulation -: AM lab: BMP, CBC * .
[2018-04-11] MEDS: Ezetimibe 10 MG TAB PO SCH (19:58)
--- NOTE | 2018-04-12 02:51 | CON ---
DATE OF CONSULTATION: 04/11/2018 GASTROENTEROLOGY CONSULTATION CHIEF COMPLAINT: Anemia. HISTORY OF PRESENT ILLNESS: Mr. Dunne is an 87-year-old man, who presented to the hospital after he was found to have severe anemia by blood work as an outpatient. He denies overt blood loss. He has not seen red blood in the stool or black stools. He was just admitted to the hospital a couple of weeks ago and underwent endoscopy by Dr. Flanagan. This revealed severe grade D erosive esophagitis and also a gastric ulcer, which was cauterized. He was discharged home and his Xarelto was restarted a week ago. He has had no abdominal pain, nausea, vomiting, diarrhea, or constipation. PAST MEDICAL HISTORY: Recent bleeding gastric ulcer and severe erosive esophagitis, hyperlipidemia, CHF, sleep apnea, gastroesophageal reflux disease, and atrial fibrillation. PAST SURGICAL HISTORY: Right below the knee amputation, hernia repair, and coronary artery bypass graft. FAMILY HISTORY: Negative for GI malignancy. SOCIAL HISTORY: No alcohol, tobacco, or drugs. ALLERGIES: NO KNOWN DRUG ALLERGIES. MEDICATIONS: Prior to admission; 1. Aspirin. 2. Furosemide. 3. Irbesartan. 4. Xarelto. 5. Zetia. 6. Lexapro. 7. Metoprolol. 8. Levofloxacin. REVIEW OF SYSTEMS: Negative x10 systems reviewed except as stated in the history of present illness. PHYSICAL EXAMINATION: VITAL SIGNS: Temperature 97.9, pulse 78, and blood pressure 118/58. GENERAL: He is in no acute distress. He is alert and oriented x3. HEENT: Eyes have no scleral icterus. Oropharynx is clear without lesions. No cervical or supraclavicular lymphadenopathy. LUNGS: Clear to auscultation bilaterally. HEART: Regular rate and rhythm without murmur. ABDOMEN: Soft, nontender, and nondistended. Bowel sounds are present. EXTREMITIES: 2+ pitting lower extremity edema on the left. LABORATORY DATA: His INR was 2.1 yesterday evening. Creatinine 1.64 on initial presentation yesterday, 1.45 this morning. White blood cell count 7.8, hemoglobin 7.5, and platelets 272. IMPRESSION: 1. Worsening anemia with hemoglobin of 7.5, down from baseline of 8 a couple of weeks ago. He is Hemoccult negative now. 2. Peptic ulcer and severe erosive esophagitis by endoscopy 2 weeks ago. RECOMMENDATIONS: 1. We will plan upper endoscopy to evaluate re-bleeding risk and risk for restarting Xarelto. He has no overt bleeding now. 2. Proton pump inhibitor. Job ID: [id number]
[2018-04-12 05:53] LABS: Anion Gap 12 mmol/L (10-20); BUN (Urea Nitrogen) 28 mg/dL (8.4-25.7); Calc. Creatinine Clearance 69 mL/min (70-130); Carbon Dioxide 20 mmol/L (23-31); Chloride 110 mmol/L (98-107); Estimated GFR-MDRD 67; Glucose 71 mg/dL (83-110); Potassium 4.6 mmol/L (3.5-5.1); Sodium 137 mmol/L (136-145)
[2018-04-12 06:05] LABS: Band 1 % (5-11); Eosinophils 1 % (0-10); Hypochromia SLIGHT = 6-15 cells (100X) (0-5/hpf); Lymphocytes 12 % (21-51); MDiff Complete? YES; Monocytes 3 % (0-10); Neutrophil 83 % (42-75); PLT Morphology Comment Appears Adequate
[2018-04-12 06:06] LABS: Hemoglobin 7.7 g/dL (14.0-18.0); Mean Corpuscular HGB CONC 31.9 g/dL (32.0-36.0); Mean Corpuscular Hemoglobin 28.9 pg (27.0-31.0); Mean Corpuscular Volume 90.5 fL (78.0-98.0); Mean Platelet Volume 7.6 fL (7.4-10.4); Platelet Count 256 thou/uL (130-400); RBC Distribution Width 18.3 % (11.5-14.5); Red Blood Cell (RBC) Count 2.66 mill/uL (4.70-6.10); White Blood Cell (WBC) Count 6.7 thou/uL (4.8-10.8)
[2018-04-12] MEDS: Benzonatate 100 MG CAP PO SCH ×3 (08:14→21:40)
[2018-04-12] MEDS: Escitalopram Oxalate 10 mg Tablet PO SCH (08:14)
[2018-04-12] MEDS: Ascorbic Acid 500 mg Chewable Tablet PO SCH (08:14)
[2018-04-12] MEDS: Ferrous Sulfate 325 MG TAB PO SCH (08:14)
[2018-04-12] MEDS: Lactinex Tablet PO SCH (08:15)
[2018-04-12] MEDS: Metoprolol Tartrate 25 MG TAB PO SCH ×2 (08:15→21:40)
[2018-04-12] MEDS: guaiFENesin ER 600 MG TAB PO SCH ×2 (08:15→21:40)
--- NOTE | 2018-04-12 10:11 | PDOC.PN ---
- Subjective Encounter Start Date: 04/12/18 Encounter Start Time: 10:00 Subjective: f/u GI bleed with hx of gastric ulcer and erosive esophagitis -: on Xarelto/ASA. s/p 1u PRBC's. Feels ok overall. No new complaints - Objective Resuscitation Status - Order Detail: 04/11/18 01:02 Resuscitation Status Routine Resuscitation Status: DNAR: NO Resuscitation Discussed with: advance directive MAR Reviewed: Yes Vital Signs & Weight: Vital Signs (12 hours) Temp Pulse Resp BP Pulse Ox 04/12/18 08:12 97.7 F 71 18 155/68 H 95 04/12/18 03:27 97.7 F 74 20 107/68 95 Weight Weight 225 lb 9.6 oz I&O: 04/11/18 04/12/18 04/13/18 06:59 06:59 06:59 Intake Total 960 Output Total 1100 Balance -140 Result Diagrams: 04/12/18 04:25 04/12/18 04:25 Additional Labs: Microbiology 04/10/18 17:03 Stool - Pending Stool Occult Blood ([facility]) - Final 04/10/18 20:35 Urine voided Urine Culture - Preliminary NO GROWTH AT 12 HOURS Laboratory Tests 03/27/18 03/28/18 04/10/18 05:15 03:13 17:35 Hgb 8.7 L 8.0 L PT 23.6 H INR 2.1 BUN Creatinine 04/10/18 04/10/18 17:35 17:35 Hgb 7.5 L PT INR BUN 33 H Creatinine 1.64 H EKG Reviewed by me: Yes (Tele - A-fib in 60's) Phys Exam - Physical Examination Constitutional: NAD nasal CPAP in place HEENT: PERRLA, sclera anicteric, oral pharynx no lesions Neck: no nodes, no JVD, supple, full ROM Respiratory: no wheezing, no rales, no rhonchi, clear to auscultation bilateral S1, S2 Cardiovascular: no significant murmur, no rub, irregular Gastrointestinal: soft, non-tender, no distention, positive bowel sounds Musculoskeletal: pulses present Neurological: normal sensation, moves all 4 limbs Psychiatric: A&O x 3 Skin: normal turgor, cap refill <2 seconds Dx/Plan (1) Gastric ulcer with hemorrhage Code(s): K25.4 - CHRONIC OR UNSPECIFIED GASTRIC ULCER WITH HEMORRHAGE Status: Acute Qualifiers: Gastric ulcer chronicity: acute Qualified Code(s): K25.0 - Acute gastric ulcer with hemorrhage Comment: + gastric ulcer and Grade D esophagitis, d/c all anticoagulants, risk is too high for recurrent bleeding, Protonix 40mg BID, repeat EGD pending (2) Acute blood loss anemia Code(s): D62 - ACUTE POSTHEMORRHAGIC ANEMIA Status: Acute Comment: s/p 1u PRBC's, serial H/H, avoid anticoagulation (3) Atrial fibrillation Code(s): I48.91 - UNSPECIFIED ATRIAL FIBRILLATION Status: Chronic Qualifiers: Atrial fibrillation type: chronic Qualified Code(s): I48.2 - Chronic atrial fibrillation Comment: Rate controlled, no anticoagulation due to recurrent GI bleeding/ulcer (4) CAD (coronary artery disease) Code(s): I25.10 - ATHSCL HEART DISEASE OF [place] CORONARY ARTERY W/O ANG PCTRS Status: Chronic Comment: Chronic, stable, continue general med mgmt - Plan social sciences professor, DVT proph w/SCDs Stable currently -: Continue Protonix 40mg BID -: Repeat EGD pending -: D/C Xarelto -: Continue Floranex * AM lab: CBC * Likely home in am 04/13/18
[2018-04-12] MEDS: Acetaminophen/Codeine 30-300mg Tablet PO PRN ×3 (10:22→21:42)
--- NOTE | 2018-04-12 12:53 | EKG ---
Test Reason : Blood Pressure : / mmHG Vent. Rate : 071 BPM Atrial Rate : 416 BPM P-R Int : 000 ms QRS Dur : 094 ms QT Int : 414 ms P-R-T Axes : 000 054 063 degrees QTc Int : 449 ms Atrial fibrillation Low voltage QRS Abnormal ECG Confirmed by PAIGE KAMARA ([id number]), image editor NAILA NAM ([id number]) on 04/12/2018 12:53:18 PM Referred By: Confirmed By:PAIGE KAMARA
[2018-04-12] MEDS: Ezetimibe 10 MG TAB PO SCH (21:40)
[2018-04-12] MEDS ORDERED: Lidocaine 1% PF 5 ML VIAL ONE (21:53)
[2018-04-12] MEDS ORDERED: PROPOFOL 200 MG/20 ML VIAL ONE (21:53)
[2018-04-13 05:39] LABS: Band 3 % (5-11); Eosinophils 3 % (0-10); Hemoglobin 8.7 g/dL (14.0-18.0); Lymphocytes 30 % (21-51); MDiff Complete? YES; Mean Corpuscular HGB CONC 31.8 g/dL (32.0-36.0); Mean Corpuscular Hemoglobin 28.6 pg (27.0-31.0); Mean Corpuscular Volume 89.9 fL (78.0-98.0); Mean Platelet Volume 7.6 fL (7.4-10.4); Monocytes 5 % (0-10); Neutrophil 59 % (42-75); PLT Morphology Comment Appears Adequate; Platelet Count 255 thou/uL (130-400); RBC Distribution Width 18.9 % (11.5-14.5); Red Blood Cell (RBC) Count 3.04 mill/uL (4.70-6.10); White Blood Cell (WBC) Count 6.9 thou/uL (4.8-10.8)
[2018-04-13] MEDS: Escitalopram Oxalate 10 mg Tablet PO SCH (08:59)
[2018-04-13] MEDS: Benzonatate 100 MG CAP PO SCH (08:59)
[2018-04-13] MEDS: Ascorbic Acid 500 mg Chewable Tablet PO SCH (08:59)
[2018-04-13] MEDS: Lactinex Tablet PO SCH (09:00)
[2018-04-13] MEDS: guaiFENesin ER 600 MG TAB PO SCH (09:00)
[2018-04-13] MEDS: Ferrous Sulfate 325 MG TAB PO SCH (09:00)
[2018-04-13] MEDS: Metoprolol Tartrate 25 MG TAB PO SCH (09:00)
[2018-04-13] MEDS: Acetaminophen/Codeine 30-300mg Tablet PO PRN (09:03)
--- NOTE | 2018-04-13 09:33 | OP ---
DATE OF PROCEDURE: 04/12/2018 PREOPERATIVE DIAGNOSES: 1. Worsening hemoglobin and hematocrit. 2. Previous history of esophageal ulceration and bleeding. 3. Atrial fibrillation, on Xarelto. DESCRIPTION OF PROCEDURE: After informed consent was obtained, the patient was placed in the left lateral decubitus position. Anesthesia administered per the Anesthesia Department. Forward viewing endoscope was inserted into esophagus under direct visualization with ease and passed to the second portion of the duodenum with ease. Second portion of the duodenum was normal, duodenal bulb was normal, some scarring and deformity was noted in the duodenal bulb. Pylorus, antrum, body, fundus, and cardia were normal. No blood was seen in the upper GI tract. The esophageal ulcerations have all healed. ASSESSMENT: 1. Healed esophagitis. 2. Duodenal bulb deformity, secondary to prior peptic ulcer disease. 3. Hiatal hernia. 4. Otherwise normal esophagogastroduodenoscopy. RECOMMENDATIONS: 1. Transfuse 1 unit. 2. Iron replacement. 3. Resume Xarelto in 1 week. Job ID: [id number]
[2018-04-13 11:25] VITALS: BP 134/59; TEMP 98.9
--- NOTE | 2018-04-13 13:51 | DIS ---
DATE OF ADMISSION: 04/10/2018 DATE OF DISCHARGE: 04/13/2018 DISCHARGE DIAGNOSES: 1. Acute gastrointestinal bleed, recurrent, secondary to gastric ulcer and esophagitis in the context of Xarelto. 2. Acute blood loss anemia, status post 2 units of packed red blood cells. 3. Chronic atrial fibrillation, rate controlled. 4. Coronary artery disease, chronic and stable. 5. Acute kidney injury on chronic kidney disease, stage 3. CONSULTATIONS: Dr. Shafer and Dr. Flanagan with GI Service. PERTINENT LAB AND X-RAY FINDINGS: Creatinine ranged between 1.05 to 1.64. Estimated GFR ranged between 40 to 67. Lactic acid level 1.3. Phosphorus 3.2. LFTs within normal limits. Troponin I negative x1. CBC showed a hemoglobin ranging between 7.5 to 8.7. PT 23.6, INR 2.1, and PTT 47.5 on 04/10/2018. Stool Hemoccult, dated 04/10/2018, negative x1. Urine culture, dated 04/10/2018, showed no growth at 36 hours. EGD, dated 04/12/2018, showed healing esophagitis. Duodenal bulb deformity secondary to peptic ulcer disease and hiatal hernia noted. HOSPITAL COURSE: The patient was admitted to the Telemetry Unit after initially presenting with worsening anemia in the context of recent GI bleed due to esophagitis and gastric ulcer in early March 2018. The patient with severe grade D esophagitis and gastric ulcer, treated with chronic Xarelto for anticoagulation in the context of chronic atrial fibrillation. The patient readmitted for recurrent GI bleed and acute blood loss anemia. The patient was transfused with 2 units of packed red blood cells and underwent initial evaluation by the GI Service. EGD evaluation showed improved esophagitis and duodenal bulb deformity in the context of peptic ulcer disease. The patient was continued on Protonix as well as serial H and H monitoring, showing a stable hemoglobin trend by the time of discharge. Current recommendations are to discontinue anticoagulation including Xarelto and transition to aspirin 81 mg daily due to the high risk for rebleeding. The patient is in agreement with this course of action and verbalized understanding. I have examined the patient at the time of discharge and discussed followup instructions. The patient verbalizes agreement and ready for discharge on 04/13/2018. DISCHARGE MEDICATIONS: 1. Tylenol No. 3 of 300/30 mg one tablet p.o. t.i.d. p.r.n. 2. Xanax 0.5 mg p.o. t.i.d. p.r.n. 3. Tessalon Perles 100 mg p.o. t.i.d. 4. Colace 100 mg p.o. daily. 5. Lexapro 20 mg p.o. daily. 6. Zetia 10 mg p.o. at bedtime. 7. Ferrous sulfate 325 mg p.o. daily. 8. Lasix 20 mg p.o. daily. 9. Mucinex 600 mg p.o. b.i.d. p.r.n. 10. DuoNeb 3 mL nebulized q.6 hours p.r.n. 11. Irbesartan 75 mg p.o. daily. 12. Lactobacillus 1 capsule p.o. daily. 13. Metoprolol tartrate 25 mg p.o. b.i.d. 14. Enteric-coated aspirin 81 mg p.o. daily. 15. Protonix 40 mg p.o. b.i.d. FOLLOWUP: The patient may follow up with his primary care provider, Dr. Chilango Kuhn, within 7 days of discharge. The patient to follow up with Dr. Michelle Hinton and to call his office for appointment, time and date. CONDITION ON DISCHARGE: Stable. ACTIVITY: Ad-luz. DIET: Regular. CODE STATUS: Do not resuscitate. DISPOSITION: Discharged to [facility] on 04/13/2018. TIME SPENT: Total time preparing and coordinating discharge, 32 minutes. Job ID: [id number]
== END 2018-04-13 13:24 ==
LOC: ERS 16:58 → ERHOLD 19:11 → 2NO 23:37
PROVIDERS: ADMIT Internal Medicine; ATTEND Internal Medicine
PROC: 0DJ08ZZ Inspection of Upper Intestinal Tract, Via Natural or Artificial Opening Endoscopic (ICD-10-PCS; principal; 2018-04-12)
DX: K25.0 Acute gastric ulcer with hemorrhage (principal); D62 Acute posthemorrhagic anemia; K20.9 Esophagitis, unspecified; K22.8 Other specified diseases of esophagus; K44.9 Diaphragmatic hernia without obstruction or gangrene; I48.2 Chronic atrial fibrillation; K31.89 Other diseases of stomach and duodenum; I13.0 Hypertensive heart and chronic kidney disease with heart failure and stage 1 through stage 4 chronic kidney disease, or unspecified chronic kidney disease; N18.3 Chronic kidney disease, stage 3 (moderate); I50.9 Heart failure, unspecified; N17.9 Acute kidney failure, unspecified; E78.5 Hyperlipidemia, unspecified; K21.9 Gastro-esophageal reflux disease without esophagitis; G47.33 Obstructive sleep apnea (adult) (pediatric); E78.00 Pure hypercholesterolemia, unspecified; I25.10 Atherosclerotic heart disease of native coronary artery without angina pectoris; Z66 Do not resuscitate; Z79.01 Long term (current) use of anticoagulants; Z79.82 Long term (current) use of aspirin; Z79.899 Other long term (current) drug therapy; Z99.89 Dependence on other enabling machines and devices; Z95.1 Presence of aortocoronary bypass graft; Z98.890 Other specified postprocedural states
CPT/HCPCS: 36430 ×2; 43235; 80048; 80053; 80069; 82274; 83605; 84484; 85007 ×2; 85025 ×2; 85027 ×2; 85610; 85730; 86850; 86900; 86901; 86920; 87086; 93005; 96361; 96374; 99285; G0378 ×3; P9016 ×2; 36415; 81003; 81015; C9113; J2001; J2704

== ENCOUNTER 2018-06-12 13:54 | Outpatient (CLI) | payer MEDICARE, OTHER ==
--- NOTE | 2018-06-12 15:51 | RAD ---
CHEST TWO VIEWS: History: Dyspnea. Comparison: 03-26-18 FINDINGS: Chronic moderate effusion on the right. New large left effusion. Heart size is enlarged. No pneumotho rax. Calcific tendonosis right rotator cuff. IMPRESSION: Similar moderate right with moderate to large new left pleural effusion. POS: TPC
== END 2018-06-12 13:55 | disposition home or self-care (01) ==
LOC: RAD 13:54
PROVIDERS: ATTEND Internal Medicine
DX: R06.00 Dyspnea, unspecified (principal); J90 Pleural effusion, not elsewhere classified
CPT/HCPCS: 71046

== ENCOUNTER 2018-07-23 19:30 | Outpatient (CLI) | payer MEDICARE, OTHER | END 2018-07-23 19:31 | disposition home or self-care (01) | LOC: SLEEPLAB 19:30 | PROVIDERS: ATTEND Internal Medicine | DX: G47.33 Obstructive sleep apnea (adult) (pediatric) (principal); R53.83 Other fatigue; R09.89 Other specified symptoms and signs involving the circulatory and respiratory systems; I10 Essential (primary) hypertension; I50.9 Heart failure, unspecified | CPT/HCPCS: 95811 ==

== ENCOUNTER 2018-07-25 17:37 | Inpatient (IN) | payer MEDICARE, OTHER ==
[2018-07-25] MEDS ORDERED: Furosemide 40 MG/4 ML VIAL ONE (18:19)
[2018-07-25] MEDS ORDERED: Nitroglycerin 2% Ointment 1 INCH/1 GM Packet ONE (18:19)
--- NOTE | 2018-07-25 18:31 | RAD ---
CHEST ONE VIEW: 07/25/18 COMPARISON: 03/26/18, 06/02/18. HISTORY: Dyspnea. FINDINGS: There are sternotomy wires. There is atherosclerosis of the aorta. Heart is upper normal in size. The re are bibasilar pleural and parenchymal changes. No pneumothorax. IMPRESSION: Congestive heart failure. POS: PPP
[2018-07-25 18:49] LABS: #Eosinphils 0.1 thou/uL (0.0-0.7); #Lymphocytes 1.2 thou/uL (1.20-3.40); #Monocytes 0.6 thou/uL (0.11-0.59); #Neutrophils 6.2 thou/uL (1.40-6.50); %Basophils 0.5 % (0.0-1.0); %Eosinophils 1.5 % (0.0-10.0); %Lymphocytes 14.8 % (21.0-51.0); %Monocytes 6.8 % (0.0-10.0); %Neutrophils 76.3 % (42.0-75.0); Hemoglobin 8.2 g/dL (14.0-18.0); Mean Corpuscular HGB CONC 30.5 g/dL (32.0-36.0); Mean Corpuscular Hemoglobin 26.9 pg (27.0-31.0); Mean Corpuscular Volume 88.2 fL (78.0-98.0); Mean Platelet Volume 7.8 fL (7.4-10.4); Platelet Count 331 thou/uL (130-400); RBC Distribution Width 19.4 % (11.5-14.5); Red Blood Cell (RBC) Count 3.04 mill/uL (4.70-6.10); White Blood Cell (WBC) Count 8.2 thou/uL (4.8-10.8)
[2018-07-25 19:10] LABS: ALT (SGPT) 10 U/L (8-55); AST (SGOT) 24 U/L (5-34); Albumin 3.2 g/dL (3.4-4.8); Alkaline Phosphatase 88 U/L (40-150); Anion Gap 12 mmol/L (10-20); BUN (Urea Nitrogen) 30 mg/dL (8.4-25.7); Bilirubin, Total 0.4 mg/dL (0.2-1.2); CK (CPK) 54 U/L (30-200); Calc. Creatinine Clearance 0 mL/min (70-130); Calcium 8.7 mg/dL (7.8-10.44); Carbon Dioxide 27 mmol/L (23-31); Chloride 102 mmol/L (98-107); Estimated GFR-MDRD 46; Globulin 3.4 g/dL (2.4-3.5); Glucose 107 mg/dL (83-110); Lipase 23 U/L (8-78); Potassium 4.7 mmol/L (3.5-5.1); Protein, Total 6.6 g/dL (5.8-8.1); Sodium 136 mmol/L (136-145)
[2018-07-25 19:37] LABS: Bilirubin Negative (Negative); Blood, Urine Negative (Negative); Clarity CLEAR (Clear); Glucose, Urine (Dipstick) Negative (Negative); Leukocyte Negative (Negative); Nitrite Negative (Negative); Protein, Urine (Dipstick) Negative (Neg-Trace); Specific Gravity, Urine 1.009 (1.002-1.036)
[2018-07-25] MEDS ORDERED: Ondansetron PF 4 MG/2 ML Vial IVP PRN (21:26)
[2018-07-25] MEDS ORDERED: Ondansetron ODT 4 MG TAB SL PRN (21:26)
[2018-07-25] MEDS ORDERED: Zolpidem Tartrate 5 MG TAB PO PRN (21:28)
[2018-07-25] MEDS ORDERED: Senokot S 8.6-50 MG TAB PO PRN (21:28)
[2018-07-25] MEDS ORDERED: Aspirin 325 MG TAB PO SCH (21:30)
--- NOTE | 2018-07-25 22:07 | HP ---
CHIEF COMPLAINT: Shortness of breath. HISTORY OF PRESENT ILLNESS: This is an 87-year-old male presenting with shortness of breath, cough, dyspnea on exertion as well as lower extremity swelling. The patient states that he has had a history of heart failure as well as a past medical history of some CKD and hypertension. The patient states that he has also had history of AFib and uses CPAP at night to sleep for sleep apnea. 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 The patient states that he was having some dyspnea on exertion as well as orthopnea when he lay flat. He was short of breath. The patient is seen and examined in the ER. Son at bedside. All questions were answered. ALLERGIES: NO KNOWN DRUG ALLERGIES. PAST MEDICAL HISTORY: For congestive heart failure, peripheral vascular disease with right-sided BKA, lower extremity edema, history of paroxysmal AFib, CKD stage 3 to 4, hypertension, and anemia. SOCIAL HISTORY: Nondrinker, nonsmoker. FAMILY HISTORY: Hypertension and heart failure. REVIEW OF SYSTEMS: All systems reviewed. Pertinent positives in HPI, otherwise negative. PHYSICAL EXAMINATION: VITAL SIGNS: Blood pressure 132/70, pulse of 72, O2 saturations 100% on 2 L nasal cannula, respiratory rate of 18, temperature 97.7. HEENT: Pupils are equal, round, and reactive to light and accommodation. Oral cavity moist and pink. NECK: Supple, mobile, nontender. Thyroid appreciated. CARDIOVASCULAR: Has sinus rhythm. S1 and S2. 2/6 systolic ejection murmur appreciated. PULMONARY: Reveals inspiratory crackles bilaterally. No increase in AP diameter. No respiratory distress. ABDOMEN: Positive bowel sounds. Soft, nontender, nondistended. EXTREMITIES: Reveals right-sided BKA. 2+ pitting edema in bilateral lower extremities. NEUROLOGIC: Cranial nerves 2 through 12 intact. No loss of sensory function. LABORATORY DATA: CBC reviewed. Basic metabolic panel reviewed. Urinalysis reviewed. ASSESSMENT: 1. Congestive heart failure decompensation. 2. Chronic kidney disease, stage 4. 3. Hypervolemia. 4. Hypertension. 5. Metabolic bone disease. 6. Anemia of renal disease. 7. History of sleep apnea. 8. History of paroxysmal atrial fibrillation. PLAN: 1. At this point in time, we will start the patient on Lasix 40 IV b.i.d. We will obtain an echocardiogram and retroperitoneal ultrasound. 2. Patient likely has a higher creatinine and a lower GFR that was being shown. He appears to be significantly volume overloaded with a creatinine of 1.45. It is likely a false number given the overt volume status that he has and creatinine likely diluted. 3. Patient likely has a CKD stage 4. At this point in time, given the anemia as well as hypertension, we will consult Nephrology as he will need long-term outpatient Renal following at this point in time. 4. We will also obtain an echocardiogram. 5. Consult Cardiology as well his outpatient physician is Dr. Hinton and we will call. The patient wishes to remain a DNR. P.r.n. oxygen to be provided. Diuretics given hypervolemic state as well as decompensated heart failure. 6. Case and plan discussed with the patient and son at length. They understand and agree with this plan. Job ID: [id number]
[2018-07-25 22:10] LABS: Troponin I 0.025 ng/mL (< 0.028)
[2018-07-26 01:19] LABS: Troponin I 0.011 ng/mL (< 0.028)
[2018-07-26] MEDS: Furosemide 40 MG/4 ML VIAL SLOW IVP SCH ×2 (05:06→14:24)
[2018-07-26] MEDS: Nitroglycerin 2% Ointment 1 INCH/1 GM Packet TOP SCH ×2 (05:08)
[2018-07-26 07:20] LABS: #Eosinphils 0.2 thou/uL (0.0-0.7); #Lymphocytes 1.7 thou/uL (1.20-3.40); #Monocytes 0.7 thou/uL (0.11-0.59); #Neutrophils 4.4 thou/uL (1.40-6.50); %Basophils 0.7 % (0.0-1.0); %Eosinophils 3.2 % (0.0-10.0); %Lymphocytes 24.5 % (21.0-51.0); %Monocytes 9.7 % (0.0-10.0); %Neutrophils 61.9 % (42.0-75.0); Hemoglobin 7.8 g/dL (14.0-18.0); Mean Corpuscular HGB CONC 30.5 g/dL (32.0-36.0); Mean Corpuscular Hemoglobin 26.7 pg (27.0-31.0); Mean Corpuscular Volume 87.5 fL (78.0-98.0); Mean Platelet Volume 7.7 fL (7.4-10.4); Platelet Count 336 thou/uL (130-400); RBC Distribution Width 19.4 % (11.5-14.5); Red Blood Cell (RBC) Count 2.91 mill/uL (4.70-6.10)
[2018-07-26 07:31] LABS: Anion Gap 12 mmol/L (10-20); BUN (Urea Nitrogen) 30 mg/dL (8.4-25.7); Calc. Creatinine Clearance 53 mL/min (70-130); Calcium 8.6 mg/dL (7.8-10.44); Carbon Dioxide 28 mmol/L (23-31); Chloride 103 mmol/L (98-107); Estimated GFR-MDRD 50; Glucose 75 mg/dL (83-110); Potassium 4.1 mmol/L (3.5-5.1); Sodium 139 mmol/L (136-145)
[2018-07-26 07:35] LABS: Troponin I 0.018 ng/mL (< 0.028)
--- NOTE | 2018-07-26 08:14 | ULT ---
FRenal ultrasound: 07/26/2018 COMPARISON: None HISTORY: Acute on chronic kidney disease TECHNIQUE: Multiplanar grayscale sonographic imaging of the kidneys and the urinary bladder obtained. FINDINGS: The right kidney measures 10.1 x 4.7 x 5.7 cm with diffuse cortical thinning measuring appr oximately 1.2 cm. No right renal mass, hydronephrosis, or stone appreciated. Left kidney measures 10.0 x 6.0 x 4.3 cm and demonstrates a cortical thickness of approximately 1.1 c m. Lower pole left renal cyst measuring 3.4 cm noted. 2 small urinary bladder diverticula suspected posteriorly on the right measuring up to 1.7 cm. IMPRESSION: No evidence for hydronephrosis on either side. Incidental findings as detailed above. No acute findings are noted. Question small urinary bladder diverticula. Left lower pole renal cyst.
[2018-07-26] MEDS: Heparin 5,000 UNITS/ML VIAL SC SCH ×2 (08:29→20:17)
[2018-07-26] MEDS ORDERED: ALPRAZolam 0.5 MG TAB PO PRN (09:06)
[2018-07-26] MEDS ORDERED: Spironolactone 25 MG TAB PO SCH ×2 (09:26→10:45)
--- NOTE | 2018-07-26 10:27 | CON ---
DATE OF CONSULTATION: HISTORY OF PRESENT ILLNESS: The patient is an 87-year-old gentleman, who presents with progressive dyspnea. The patient has a long history of coronary artery disease. He states that he previously underwent coronary bypass surgery x3. He also has history of peripheral vascular disease. The patient is status post right BKA. The patient has a history of atrial fibrillation and was on Xarelto. He developed severe GI hemorrhage. The patient presents with a several months history of progressive dyspnea. He notices that he also has developed PND and orthopnea. The patient denies having any chest discomfort. PAST MEDICAL HISTORY: Significant for; 1. Coronary artery disease. 2. Atrial fibrillation. 3. Peripheral vascular disease. 4. Hypertension. 5. Chronic renal insufficiency. 6. Anemia. PAST SURGICAL HISTORY: He has had coronary bypass surgery. He has had TURP. He has had resection of an aneurysm in his leg. He has had right BKA. SOCIAL HISTORY: He is a nonsmoker. FAMILY HISTORY: Positive family history of heart disease. MEDICATIONS: See nursing list. ALLERGIES: NO KNOWN DRUG ALLERGIES. REVIEW OF SYSTEMS: Ten-point system otherwise unremarkable. PHYSICAL EXAMINATION: GENERAL: He is an obese gentleman, in no acute distress. VITAL SIGNS: Blood pressure of 129/60. NECK: Showed no jugular venous distention. LUNGS: Have crackles in both bases and diffuse wheezes. HEART: Irregular rate and rhythm. Normal S1, S2. No murmurs. ABDOMEN: Distended. EXTREMITIES: Showed status post right BKA with 2+ edema. VASCULAR: Radial pulses are 2+. NEUROLOGIC: Nonfocal. LABORATORY RESULTS: His white blood count 7.0, hemoglobin 7.8, hematocrit 25.5, and platelets are 336. Sodium 139, potassium 4.1, chloride 103, bicarbonate 28, BUN 30, creatinine 1.35. Troponin was 0.018. His EKG revealed atrial fibrillation with poor R-wave progression. His chest x-ray revealed cardiomegaly with bilateral effusions. IMPRESSION: 1. Congestive heart failure. 2. History of coronary bypass surgery x3. 3. Chronic permanent atrial fibrillation. 4. Peripheral vascular disease. 5. History of gastrointestinal hemorrhage, on Xarelto. 6. Status post right below-knee amputation. 7. Hypertension. This gentleman presents with congestive heart failure. We will check the patient's echocardiogram to evaluate his left ventricular function. We will restart the patient on his Avapro and aspirin. We will hold the patient's beta uche at this time since he appears to have possible chronic obstructive pulmonary disease. We will add spironolactone. The patient should be on lipid lowering medication. We will start Lipitor. We will consider EP consultation for possible Watchman device since this patient may have difficulty with long-term anticoagulation secondary to his history of severe GI hemorrhage. We will follow this patient with you through his hospitalization. Job ID: [id number]
[2018-07-26 12:59] LABS: Troponin I 0.029 ng/mL (< 0.028)
[2018-07-26] MEDS: Ezetimibe 10 MG TAB PO SCH (20:17)
[2018-07-26] MEDS: Atorvastatin Calcium 20 MG TAB PO SCH (20:18)
[2018-07-26] MEDS ORDERED: Metoprolol Tartrate 25 MG TAB PO SCH (21:00)
--- NOTE | 2018-07-26 22:26 | PDOC.PN ---
- Subjective Encounter Start Date: 07/26/18 Encounter Start Time: 10:35 Subjective: pt up in bed still complains of sob but feels it has improved - Objective Resuscitation Status - Order Detail: 07/25/18 21:28 Resuscitation Status Routine Resuscitation Status: DNAR: NO Resuscitation Discussed with: patient and son Vital Signs & Weight: Vital Signs (12 hours) Temp Pulse Resp BP Pulse Ox 07/26/18 20:12 98.2 F 107 H 18 131/60 99 07/26/18 20:00 99 07/26/18 15:40 98.0 F 98 16 145/65 H 98 07/26/18 11:22 98.5 F 94 26 H 148/69 H 100 Weight Weight 224 lb 3.2 oz I&O: 07/25/18 07/26/18 07/27/18 06:59 06:59 06:59 Intake Total 240 400 Output Total 950 1640 Balance -680 -0523 Result Diagrams: 07/26/18 05:43 07/26/18 05:43 Phys Exam - Physical Examination Neck: no nodes, no JVD, supple, full ROM mild crackles to bases Cardiovascular: no significant murmur, no rub, gallop, irregular Gastrointestinal: soft, non-tender, no distention, positive bowel sounds Musculoskeletal: edema present to left lower ext and right stump Dx/Plan (1) Atrial fibrillation Code(s): I48.91 - UNSPECIFIED ATRIAL FIBRILLATION Status: Chronic Qualifiers: Atrial fibrillation type: chronic Qualified Code(s): I48.2 - Chronic atrial fibrillation Comment: Rate controlled, no anticoagulation due to recurrent GI bleeding/ulcer (2) Gastric ulcer with hemorrhage Code(s): K25.4 - CHRONIC OR UNSPECIFIED GASTRIC ULCER WITH HEMORRHAGE Status: Acute Qualifiers: Gastric ulcer chronicity: acute Qualified Code(s): K25.0 - Acute gastric ulcer with hemorrhage Comment: + gastric ulcer and Grade D esophagitis, d/c all anticoagulants, risk is too high for recurrent bleeding, Protonix 40mg BID, repeat EGD pending (3) HTN (hypertension) Code(s): I10 - ESSENTIAL (PRIMARY) HYPERTENSION Status: Chronic (4) Acute on chronic heart failure Code(s): I50.9 - HEART FAILURE, UNSPECIFIED Status: Acute - Plan pt not on AC due to gi bleed in the past -: echo pending to determin if systolic vs diastolic HF -: will also tx pt as copd exab with duoneb and steroids -: continue iv lasix. * . Review of Systems - Review of Systems Respiratory: Shortness of Breath Cardiovascular: orthopnea, paroxysmal nocturnal dyspnea Gastrointestinal: negative: Nausea, Vomiting, Abdominal Pain, Diarrhea, Constipation, Melena, Hematochezia, Other Genitourinary: negative: Dysuria, Frequency, Incontinence, Hematuria, Retention , Other Musculoskeletal: negative: Neck Pain, Shoulder Pain, Arm Pain, Back Pain, Hand Pain, Leg Pain, Foot Pain, Other - Medications/Allergies Allergies/Adverse Reactions: Allergies Allergy/AdvReac Type Severity Reaction Status Date / Time No Known Allergies Allergy Verified 07/25/18 21:26 Medications: Current Medications Acetaminophen (Tylenol) 650 mg PO Q4H PRN PRN Reason: Headache/Fever/Mild Pain (1-3) Acidophilus (Floranex) 1 tab PO DAILY [facility] Alprazolam (Xanax) 0.5 mg PO HS PRN PRN Reason: Anxiety Aspirin (Ecotrin) 81 mg PO DAILY [facility] Atorvastatin Calcium (Lipitor) 20 mg PO HS [facility] Last Admin: 07/26/18 20:18 Dose: 20 mg Docusate Sodium (Colace) 100 mg PO DAILY [facility] Ezetimibe (Zetia) 10 mg PO HS [facility] Last Admin: 07/26/18 20:17 Dose: 10 mg Escitalopram Oxalate (Lexapro) 20 mg PO DAILY [facility] Ferrous Sulfate (Feosol) 325 mg PO DAILY [facility] Furosemide (Lasix) 40 mg SLOW IVP 0600,1400 [facility] Last Admin: 07/26/18 14:24 Dose: 40 mg Heparin Sodium (Porcine) (Heparin) 5,000 units SC BID [facility] Last Admin: 07/26/18 20:17 Dose: 5,000 units Irbesartan (Avapro) 75 mg PO DAILY [facility] Last Admin: 07/26/18 11:28 Dose: 75 mg Ondansetron HCl (Zofran) 4 mg IVP Q6H PRN PRN Reason: Nausea/Vomiting Ondansetron HCl (Zofran Odt) 4 mg SL Q6H PRN PRN Reason: Nausea/Vomiting Senna/Docusate Sodium (Senokot S) 2 tab PO BIDPRN PRN PRN Reason: Constipation Sodium Chloride (Flush - Normal Saline) 10 ml IVF Q12H PRN PRN Reason: Saline Flush Last Admin: 07/26/18 05:06 Dose: 10 ml Spironolactone (Aldactone) 25 mg PO QAM-WM BRANDI Zolpidem Tartrate (Ambien) 5 mg PO HSPRN PRN PRN Reason: Insomnia
[2018-07-26] MEDS ORDERED: Ipratropium Bromide 2.5 ml Neb NEB PRN (22:29)
[2018-07-27] MEDS: Ipratropium Bromide 2.5 ml Neb NEB SCH ×4 (00:16→18:35)
[2018-07-27] MEDS: Furosemide 40 MG/4 ML VIAL SLOW IVP SCH ×2 (05:04→14:57)
[2018-07-27 06:25] LABS: Albumin 3.1 g/dL (3.4-4.8); Anion Gap 14 mmol/L (10-20); BUN (Urea Nitrogen) 27 mg/dL (8.4-25.7); BUN/Creatinine Ratio 22.69; Calc. Creatinine Clearance 60 mL/min (70-130); Calcium 8.7 mg/dL (7.8-10.44); Carbon Dioxide 28 mmol/L (23-31); Chloride 102 mmol/L (98-107); Estimated GFR-MDRD 58; Glucose 78 mg/dL (83-110); Iron 13 ug/dL (65-175); Iron Binding Capacity, Total 301 mcg/dL (261-462); Phosphorus 3.5 mg/dL (2.3-4.7); Potassium 3.8 mmol/L (3.5-5.1); Sodium 140 mmol/L (136-145)
[2018-07-27 06:37] LABS: Ferritin 38.09 ng/mL (22-322)
[2018-07-27 06:38] LABS: Vitamin D, 25 Hydroxy 38.8 ng/ml (> 30.0)
[2018-07-27] MEDS: Escitalopram Oxalate 10 mg Tablet PO SCH (08:06)
[2018-07-27] MEDS: Aspirin 81 mg Enteric Coated Tablet PO SCH (08:06)
[2018-07-27] MEDS: Famotidine 20 MG TAB PO SCH (08:07)
[2018-07-27] MEDS: Docusate 100 MG CAP PO SCH (08:07)
[2018-07-27] MEDS: Ferrous Sulfate 325 MG TAB PO SCH (08:07)
[2018-07-27] MEDS: methylPREDNISolone Sod Succ 40 MG VIAL IVP SCH (08:07)
[2018-07-27] MEDS: Spironolactone 25 MG TAB PO SCH (08:07)
[2018-07-27] MEDS: Lactinex Tablet PO SCH (08:07)
[2018-07-27] MEDS: Heparin 5,000 UNITS/ML VIAL SC SCH ×3 (08:12→20:11)
[2018-07-27] MEDS ORDERED: Non-Formulary Item 1 EACH (Lactobacillus Acidophilus [Probiotic] 1 CAPSULE) PO SCH (09:00)
--- NOTE | 2018-07-27 09:53 | PRG ---
DATE OF SERVICE: 07/27/2018 SUBJECTIVE: Vibha states he is feeling well. He still has a lot of edema. He is not short of breath. No chest pain. OBJECTIVE: VITAL SIGNS: Blood pressure 140/68 and pulse 88 and regular. LUNGS: Clear. CARDIAC: Normal S1 and S2. ABDOMEN: Soft and nontender. EXTREMITIES: Still [id number] edema. LABORATORY DATA: Echocardiogram shows the ejection fraction is normal. ASSESSMENT: 1. Diastolic congestive heart failure. 2. Underlying coronary artery disease. 3. Anemia. PLAN: 1. We will check iron levels. 2. Continue diuretics. 3. Continue to monitor electrolytes. 4. Iron level was very low. Ferritin level very low. We will give intravenous iron. Job ID: [id number]
--- NOTE | 2018-07-27 10:32 | PRG ---
DATE OF SERVICE: 07/27/2018 SUBJECTIVE: An 87-year-old male admitted with igmbf-ow-smzyefw congestive heart failure. Nephrology consult was requested due to acute kidney injury. The patient reports improving shortness of breath and swelling. He denied fever, chest pain , nausea, or vomiting. He, however, is having frequent loose stools. OBJECTIVE: VITAL SIGNS: Temperature 98.9, pulse is 108, respiratory rate 16, SpO2 of 95% on oxygen via nasal cannula, and blood pressure is 140/68. GENERAL: An elderly male, in no obvious distress. Afebrile, anicteric, acyanotic. HEENT: Normocephalic and atraumatic. Pupils are equal and reacting to light. CARDIOVASCULAR: Irregular rhythm. Tachycardic. Normal heart sounds one and two. RESPIRATORY: Air entry is decreased, however, at both bases. There is no use of accessory muscles. GI: Abdomen is obese, soft, nontender, nondistended with normal bowel sounds. EXTREMITIES: Right BKA noted. Bilateral leg edema (moderate) noted. NEUROLOGIC: Conscious, alert, oriented x3 with appropriate mental status. DIAGNOSTIC DATA: BMP showed sodium 140, potassium 3.8, chloride 102, CO2 of 28 , BUN 27, creatinine 1.19, glucose 78, calcium 8.7, phosphorus 3.5, albumin 3.1. Iron chemistry showed serum iron of 13, TIBC 301, iron saturation of 4, ferritin of 38.09. PTH is 89.4. ASSESSMENT: 1. Acute kidney injury superimposed, on chronic kidney disease stage 3. Creatinine and renal function are improving with diuretics consistent with cardiorenal syndrome. 2. Volume Overload: Due to acute CHF. 2. Iron deficiency anemia: Etiology is unclear. Most likely gastrointestinal losses. The patient had gastrointestinal bleed in March. Had EGD in Mar but last colonoscopy was about 10 years ago. 3. Ohfyy-wb-kcvfxrl congestive heart failure. 4. Atrial fibrillation. 5. Obstructive sleep apnea, on CPAP. 6. Hypertension. Control is acceptable. PLAN: 1. Continue diuretics and monitor renal function as well as intake and output. We defer diuretics to Cardiology. 2. Avoid nephrotoxic agents. 3. Replete serum iron with IV iron. 4. Consider GI for colonoscopy for further evaluation of severe iron deficiency. 5. Other treatment as per Cardiology and primary attending. Job ID: [id number] [facility]
--- NOTE | 2018-07-27 10:40 | CON ---
DATE OF CONSULTATION: 07/26/2018 CONSULTING PHYSICIAN: Dr. Adryan Conde. REASON FOR CONSULTATION: Acute kidney injury on CKD. CHIEF COMPLAINT: Worsening shortness of breath and swelling. HISTORY OF PRESENT ILLNESS: An 87-year-old male with known history of chronic CHF, atrial fibrillation, peripheral vascular disease, status post right BKA and obstructive sleep apnea on CPAP at home, admitted with worsening shortness of breath and cough associated with increasing lower extremity edema. Impression of acute respiratory failure from acute CHF was made and the patient was started on diuretics. The patient also was noted to have increasing creatinine consistent with acute kidney injury superimposed on CKD, hence Nephrology consult. The patient denied hematuria, difficulty urinating, nocturia, or excessive urination. Review of medical records showed the patient had prior episode of INNA. PAST MEDICAL HISTORY: 1. Coronary artery disease, status post CABG. 2. Peripheral vascular disease, status post right BKA. 3. Ischemic cardiomyopathy with EF of 45% on echo in 2011. 4. CKD. 5. Hypertension. 6. Atrial fibrillation. 7. Obstructive sleep apnea. 8. BPH. 9. GI bleeding. 10. Anemia. PAST SURGICAL HISTORY: 1. Coronary artery bypass surgery. 2. Transurethral resection of prostate. 3. Right BKA. FAMILY HISTORY: Significant for heart disease in family. SOCIAL HISTORY: The patient does not smoke nor drink alcohol. ALLERGIES: NO KNOWN DRUG ALLERGY REPORTED. HOME MEDICATIONS: 1. Acetaminophen 650 p.o. q.4 p.r.n. 2. Xanax 0.5 mg p.o. at bedtime p.r.n. 3. Ferrous sulfate 325 mg p.o. daily. 4. Zetia 10 mg p.o. at bedtime. 5. Lexapro 20 mg p.o. daily. 6. Protonix 40 mg p.o. b.i.d. 7. DuoNeb q.6 p.r.n. 8. Metoprolol 25 mg p.o. b.i.d. 9. Irbesartan 75 mg p.o. daily. 10. Aspirin 81 mg p.o. daily. 11. Lasix 20 mg p.o. daily. Current hospital medications: 1. Lipitor 20 mg daily at bedtime. 2. Docusate 100 mg. 3. Lasix 40 mg IV b.i.d. 4. Heparin 5000 units subcu b.i.d. 5. Avapro 75 mg p.o. daily. 6. Spironolactone 25 mg p.o. daily. 7. Acetaminophen 650 p.o. q.4 p.r.n. for pain. 8. Xanax 0.5 mg p.o. at bedtime p.r.n. 9. DuoNeb q.6 hours. 10. Zofran 4 mg q.6. 11. Sennosides-docusate two tablets p.o. b.i.d. p.r.n. for constipation. 12. Zolpidem 5 mg p.o. at bedtime p.r.n. REVIEW OF SYSTEMS: A 12-point review of system performed was negative other than pertinent positives included in the history of present illness. PHYSICAL EXAMINATION: VITAL SIGNS: Temperature 98, pulse 98, respiratory rate 16, SpO2 of 98 on 1.5 L oxygen by nasal cannula, blood pressure is 145/65. GENERAL: Elderly male, in mild respiratory distress. Afebrile. Anicteric. Acyanotic. HEENT: Normocephalic, atraumatic. Pupils are equal and reacting to light. Oral mucosa is moist. CARDIOVASCULAR: Irregular rhythm and rate with normal heart sounds. RESPIRATORY: Fair air entry bilaterally with some transmitted sounds. Air entry decreased at both bases. GI: Abdomen is obese, soft, nontender, nondistended with normal bowel sounds. EXTREMITIES: Right BKA noted. Moderate to severe bilateral leg edema noted. NEUROLOGIC: Conscious, alert, and oriented x3 with appropriate mental status. Cranial nerves 2 through 12 are intact. The patient moves all extremities. DIAGNOSTIC DATA: CMP on presentation showed sodium 136, potassium 4.7, chloride 102, CO2 of 27, BUN 30, creatinine 1.45, glucose 107, calcium 8.7, total bilirubin 0.4, AST 24, ALT 10, alkaline phosphatase 88, total protein 6.6, albumin 3.2. Repeat BMP on July 26 showed BUN 30, creatinine 1.35. CBC on presentation showed WBC count of 8.2, hemoglobin of 8.2, MCV of 88.2, platelet of 331. Urinalysis on admission showed it was unremarkable with negative protein, ketone , glucose, blood, nitrite, and leukocyte esterase. Chest x-ray on presentation July 25 showed sternotomy wires with atherosclerotic aorta and bibasilar pleural and parenchymal changes suggestive of congestive heart failure. Bilateral renal ultrasound showed right kidney measuring 10.1 x 4.7 x 5.7 with diffuse cortical thinning. Left kidney also measured 10.0 x 6 x 4.3 with cortical thinning again. Left lower pole renal cyst measuring 3.4 cm was also noted. ASSESSMENT: 1. Acute kidney injury on chronic kidney disease stage 2/3. The patient has had multiple acute kidney injuries which are hemodynamic factors related. These again seems to be hemodynamically related, most likely due to cardiorenal syndrome. The patient had normal creatinine of 1.05 on March 2018, but was 1.45 on presentation. Creatinine already has improved to 1.35 with diuretic therapy. However not at baseline 2. Volume overload: Due to acute CHF+/- dietary indiscretion 3. Acid/base and Electrolytes: acceptable 4. Anemia: This is chronic. Differentials include chronic illness/chronic kidney disease versus chronic iron deficiency and chronic bleeding. 5. Hypertension: Control acceptable. 6. Peripheral vascular disease, status post right below-knee amputation. 7. Acute respiratory failure with hypoxia 8. Acute on chronic CHF. PLAN/RECOMMENDATION: Continue diuretic therapy. Monitor renal function, electrolytes and 1/o. We will also get iron chemistry as well as vitamin D, PTH, and phosphorus. We will avoid nephrotoxic agents. Many thanks for involving us in the care of this patient. We will follow along with you. Job ID: [id number] [facility]
--- NOTE | 2018-07-27 11:39 | PDOC.PN ---
- Subjective Encounter Start Date: 07/27/18 Encounter Start Time: 11:37 Patient seen and examined, stable, no overnight issues, no famly at bedside. - Objective Resuscitation Status - Order Detail: 07/25/18 21:28 Resuscitation Status Routine Resuscitation Status: DNAR: NO Resuscitation Discussed with: patient and son Vital Signs & Weight: Vital Signs (12 hours) Temp Pulse Resp BP Pulse Ox 07/27/18 11:05 97.6 F 103 H 16 135/60 94 L 07/27/18 07:05 98.9 F 108 H 16 140/68 95 07/27/18 06:37 98 07/27/18 06:31 88 16 98 07/27/18 03:17 98.1 F 95 18 140/66 98 07/27/18 00:16 93 16 Weight Weight 223 lb 1.6 oz I&O: 07/26/18 07/27/18 07/28/18 06:59 06:59 06:59 Intake Total 240 800 Output Total 950 1865 Balance -710 1064 Result Diagrams: 07/26/18 05:43 07/27/18 03:59 Phys Exam - Physical Examination Constitutional: NAD HEENT: PERRLA, moist MMs, sclera anicteric Neck: no nodes, no JVD, supple Respiratory: no wheezing, no rales, no rhonchi Cardiovascular: no significant murmur, irregular Gastrointestinal: soft, non-tender, no distention, positive bowel sounds Dx/Plan (1) Iron deficiency anemia Code(s): D50.9 - IRON DEFICIENCY ANEMIA, UNSPECIFIED Status: Acute (2) Acute on chronic heart failure Code(s): I50.9 - HEART FAILURE, UNSPECIFIED Status: Acute (3) CAD (coronary artery disease) Code(s): I25.10 - ATHSCL HEART DISEASE OF [place] CORONARY ARTERY W/O ANG PCTRS Status: Chronic Comment: Chronic, stable, continue general med mgmt (4) Chronic a-fib Code(s): I48.2 - CHRONIC ATRIAL FIBRILLATION Status: Chronic (5) HTN (hypertension) Code(s): I10 - ESSENTIAL (PRIMARY) HYPERTENSION Status: Chronic - Plan * Will obtain stool guiac to check for GI bleed, if negative the iron deficiency is likely due to poor appetite as well as CKD reducing intestinal iron absoption capability in my opinion, if guiac positive will consult GI * will cont with IV iron for now * cardio and renal following * echo pending * possible DC in AM if guiac negative * no family at bedside * plan d/w nurse
[2018-07-27] MEDS ORDERED: Benzonatate 100 MG CAP PO PRN (17:29)
[2018-07-27] MEDS ORDERED: guaiFENesin/DM ER PO PRN (17:30)
[2018-07-27] MEDS: Atorvastatin Calcium 20 MG TAB PO SCH (20:11)
[2018-07-27] MEDS: Ezetimibe 10 MG TAB PO SCH (20:11)
[2018-07-27] MEDS: Iron, Sodium Ferric Gluconate 250 MG in Sodium Chloride 0.9% 100 ML IVPB SCH (20:12)
[2018-07-28] MEDS: Ipratropium Bromide 2.5 ml Neb NEB SCH ×4 (00:15→19:33)
[2018-07-28 05:03] LABS: #Lymphocytes 1.6 thou/uL (1.20-3.40); #Monocytes 0.8 thou/uL (0.11-0.59); #Neutrophils 6.9 thou/uL (1.40-6.50); %Basophils 0.4 % (0.0-1.0); %Eosinophils 0.3 % (0.0-10.0); %Lymphocytes 17.6 % (21.0-51.0); %Monocytes 8.2 % (0.0-10.0); %Neutrophils 73.5 % (42.0-75.0); Hemoglobin 8.4 g/dL (14.0-18.0); Mean Corpuscular HGB CONC 29.7 g/dL (32.0-36.0); Mean Corpuscular Hemoglobin 26.5 pg (27.0-31.0); Mean Platelet Volume 7.6 fL (7.4-10.4); Platelet Count 359 thou/uL (130-400); RBC Distribution Width 18.9 % (11.5-14.5); Red Blood Cell (RBC) Count 3.16 mill/uL (4.70-6.10); White Blood Cell (WBC) Count 9.3 thou/uL (4.8-10.8)
[2018-07-28 05:23] LABS: Anion Gap 14 mmol/L (10-20); BUN (Urea Nitrogen) 29 mg/dL (8.4-25.7); Calc. Creatinine Clearance 55 mL/min (70-130); Calcium 8.8 mg/dL (7.8-10.44); Carbon Dioxide 29 mmol/L (23-31); Chloride 100 mmol/L (98-107); Estimated GFR-MDRD 53; Glucose 108 mg/dL (83-110); Potassium 3.6 mmol/L (3.5-5.1); Sodium 139 mmol/L (136-145)
[2018-07-28] MEDS: Furosemide 40 MG/4 ML VIAL SLOW IVP SCH ×2 (06:38→14:45)
[2018-07-28] MEDS: methylPREDNISolone Sod Succ 40 MG VIAL IVP SCH (09:30)
[2018-07-28] MEDS ORDERED: Potassium Chloride 20 MEQ TAB PO SCH (09:30)
[2018-07-28] MEDS: Famotidine 20 MG TAB PO SCH (09:31)
[2018-07-28] MEDS: Aspirin 81 mg Enteric Coated Tablet PO SCH (09:31)
[2018-07-28] MEDS: Ferrous Sulfate 325 MG TAB PO SCH (09:31)
[2018-07-28] MEDS: Docusate 100 MG CAP PO SCH (09:31)
[2018-07-28] MEDS: Heparin 5,000 UNITS/ML VIAL SC SCH ×2 (09:31→21:40)
[2018-07-28] MEDS: Escitalopram Oxalate 10 mg Tablet PO SCH (09:31)
[2018-07-28] MEDS: Lactinex Tablet PO SCH (09:32)
[2018-07-28] MEDS: Spironolactone 25 MG TAB PO SCH (09:32)
--- NOTE | 2018-07-28 09:34 | PRG ---
DATE OF SERVICE: 07/28/2018 SUBJECTIVE: 87-year-old admitted due to acute respiratory failure, found to have acute CHF. Nephrology consult was requested for acute kidney injury on CKD. The patient had a loose stool in the last 2 days, but that has subsided. Denied nausea or vomiting. Still having some shortness of breath and cough with scanty sputum production. Denied fever or chest pain. Making adequate urine with current diuretics. OBJECTIVE: VITAL SIGNS: Temperature 99.3, pulse 90, respiratory rate 20, SpO2 of 98 on 2 L nasal cannula, and blood pressure 165/82. GENERAL: Elderly male, in mild respiratory distress. Afebrile, anicteric, acyanotic. HEENT: Normocephalic, atraumatic. Pupils are equal and reacting to light. CARDIOVASCULAR: Regular rhythm and rate with normal heart sounds 1 and 2. RESPIRATORY: Fair air entry bilaterally with some transmitted sounds. Air entry, however, is decreased at both bases. GI: Obese, soft, nontender, nondistended with normal bowel sounds. EXTREMITIES: Right BKA and moderate left leg edema. NEUROLOGIC: Conscious, alert, and oriented x3 with appropriate mental status. The patient moves all extremities. Cranial nerves 2 through 12 are grossly intact. DIAGNOSTIC DATA: BMP today showed sodium 139, potassium 3.6, chloride 100, CO2 29, BUN 29, creatinine 1.28, glucose 108, and calcium 8.8. CBC today showed WBC count of 9.3, hemoglobin of 8.4, MCV of 89, and platelet count of 359. Echocardiogram on 27 July 2018 showed normal EF of 55-60%. Of note, the patient had EF of 40-45% in 2014. ASSESSMENT: 1. Acute kidney injury: Due to hemodynamic factors related to cardiac dysfunction. Creatinine has improved from admission level of 1.4 to 1.1 yesterday, but increased to 1.29 today. He continues to get diuretics with good diuresis. 2. Volume overload: Due to congestive heart failure. The patient is still volume overloaded, though improved. He is still requiring oxygen with decreased air entry at both bases. 3. Iron deficiency anemia, received IV iron supplementation yesterday. 4. Acute on chronic congestive heart failure. Being managed by Cardiology. Irbesartan was discontinued due to normal EF as we were told the patient has diastolic heart failure. Metoprolol was started. 5. Atrial fibrillation with rapid ventricular response. Rate is better control with beta uche. 6. Hypertension: Control is suboptimal. The patient is now on metoprolol. 7. Electrolytes and acid-base: Acceptable. PLAN: 1. We will monitor renal function with discontinuation of irbesartan. We will get repeat chest x-ray to assess pulmonary congestion with a view to consider escalation of diuretics. 2. We will consider restarting irbesartan for blood pressure control if beta blockade alone could not achieve adequate BP control. 3. We will start potassium supplementation. 4. We will also get protein creatinine ratio. Job ID: [id number]
--- NOTE | 2018-07-28 09:49 | PRG ---
DATE OF SERVICE: 07/28/2018 SUBJECTIVE: Mr. Dunne wishes to go home. He said he feels overall better, but still very volume overloaded, however. OBJECTIVE: VITAL SIGNS: Blood pressure 165/82, pulse was earlier 110, atrial fibrillation. LUNGS: Clear. CARDIAC: Irregularly irregular. ABDOMEN: Soft and nontender. EXTREMITIES: Still severe edema. LABORATORY DATA: The patient's ferritin level came back very low. He received iron. ASSESSMENT: 1. Chronic atrial fibrillation. 2. Diastolic heart failure with normal systolic function. PLAN: 1. He is on aspirin 81 mg a day. 2. It looks like it is going to be difficult to anticoagulate him with iron deficiency anemia. 3. We will stop angiotensin receptor uche with diastolic heart failure and renal insufficiency. 4. He is on spironolactone. 5. Intravenous diuretics. 6. Long-term prognosis guarded. Job ID: [id number]
[2018-07-28] MEDS: Iron, Sodium Ferric Gluconate 250 MG in Sodium Chloride 0.9% 100 ML IVPB SCH (09:58)
[2018-07-28 10:57] LABS: Bilirubin Negative (Negative); Blood, Urine Negative (Negative); Clarity CLEAR (Clear); Glucose, Urine (Dipstick) Negative (Negative); Leukocyte Negative (Negative); Nitrite Negative (Negative); Protein, Urine (Dipstick) Negative (Neg-Trace)
[2018-07-28 11:00] LABS: Bacteria/HPF None Seen HPF (None Seen); Hyaline Casts/LPF 0-3 HYALINE CAST LPF (0-3 Hyaline); RBC/HPF 0-3 HPF (0-3); Squamous Epithelial None Seen HPF (0-3); WBC/HPF None Seen HPF (0-3)
[2018-07-28 11:34] LABS: Creatinine, Urine 34.87 mg/dL (63-166); Protein, Urine Random Quant Less than 10 mg/dL (1-14); Sodium, Urine 96 mmol/L (Not Available); Urea Nitrogen, Random Urine 347 mg/dl
--- NOTE | 2018-07-28 14:32 | PDOC.PN ---
- Subjective Encounter Start Date: 07/28/18 Encounter Start Time: 14:30 Patient seen and examined, no new issues, no family at bedside, all questions answered. - Objective Resuscitation Status - Order Detail: 07/25/18 21:28 Resuscitation Status Routine Resuscitation Status: DNAR: NO Resuscitation Discussed with: patient and son Vital Signs & Weight: Vital Signs (12 hours) Temp Pulse Resp BP Pulse Ox 07/28/18 12:40 97.0 F L 83 14 148/73 H 99 07/28/18 12:31 94 20 99 07/28/18 08:18 98.0 F 105 H 20 150/66 H 99 07/28/18 06:39 98 07/28/18 06:37 90 20 98 07/28/18 03:07 99.3 F 114 H 16 165/82 H 95 Weight Weight 220 lb 3 oz I&O: 07/27/18 07/28/18 07/29/18 06:59 06:59 06:59 Intake Total 800 720 Output Total 2934 1375 Balance -4726 -724 Result Diagrams: 07/28/18 04:37 07/28/18 04:37 Phys Exam - Physical Examination Constitutional: NAD HEENT: PERRLA, moist MMs, sclera anicteric Neck: no nodes, no JVD, supple Respiratory: no wheezing, no rales, no rhonchi Cardiovascular: RRR, no rub systolic murmur Gastrointestinal: soft, non-tender, no distention Musculoskeletal: pulses present, edema present Dx/Plan (1) Iron deficiency anemia Code(s): D50.9 - IRON DEFICIENCY ANEMIA, UNSPECIFIED Status: Acute (2) Acute on chronic heart failure Code(s): I50.9 - HEART FAILURE, UNSPECIFIED Status: Acute (3) CAD (coronary artery disease) Code(s): I25.10 - ATHSCL HEART DISEASE OF [place] CORONARY ARTERY W/O ANG PCTRS Status: Chronic Comment: Chronic, stable, continue general med mgmt (4) Chronic a-fib Code(s): I48.2 - CHRONIC ATRIAL FIBRILLATION Status: Chronic (5) HTN (hypertension) Code(s): I10 - ESSENTIAL (PRIMARY) HYPERTENSION Status: Chronic - Plan * case d/w cardio, patient remains significnatly volume overloaded, would benefit from 24-48hrs of IV diuretics * renal function likely will go up slightly, dilutional effect likely lowering Cr and baseline Cr maybe closer to 1.4, renal following, UA shows no proteinuria * hgb stable, patient received good amount of iron, has a large role of iron deficiency as well as likely anemia of renal disease, guiac was negative * BP stable * cont current plan of care * case and plan d/w patient's via phone at [phone], plan also d/w patient, they understand and agree with this plan.
[2018-07-28] MEDS: Atorvastatin Calcium 20 MG TAB PO SCH (21:40)
[2018-07-28] MEDS: Ezetimibe 10 MG TAB PO SCH (21:40)
[2018-07-29] MEDS: Ipratropium Bromide 2.5 ml Neb NEB SCH ×4 (00:02→18:40)
[2018-07-29 06:04] LABS: Albumin 3.2 g/dL (3.4-4.8); Anion Gap 9 mmol/L (10-20); BUN (Urea Nitrogen) 36 mg/dL (8.4-25.7); BUN/Creatinine Ratio 29.27; Calc. Creatinine Clearance 57 mL/min (70-130); Calcium 8.8 mg/dL (7.8-10.44); Carbon Dioxide 33 mmol/L (23-31); Chloride 101 mmol/L (98-107); Estimated GFR-MDRD 55; Glucose 81 mg/dL (83-110); Phosphorus 3.1 mg/dL (2.3-4.7); Potassium 3.9 mmol/L (3.5-5.1); Sodium 139 mmol/L (136-145)
[2018-07-29] MEDS: Furosemide 40 MG/4 ML VIAL SLOW IVP SCH (06:59)
--- NOTE | 2018-07-29 07:55 | PRG ---
DATE OF SERVICE: 07/29/2018 SUBJECTIVE: An 87-year-old being followed up by Nephrology for INNA and CKD 3. The patient is still diuresing and denied any chest pain, fever, or palpitations. Reported that shortness of breath has improved. OBJECTIVE: VITAL SIGNS: Temperature 97.8, pulse 95, respiratory rate 20, SpO2 of 97 on CPAP, and BP 149/69. GENERAL: Elderly male, in no obvious distress. Afebrile. Anicteric. HEENT: Normocephalic and atraumatic. Pupils are equal and reacting to light. BiPAP mask is in place. CARDIOVASCULAR: Irregular rhythm and rate with normal heart sounds 1 and 2. RESPIRATORY: Air entry diminished significantly at both lung bases. There is no obvious crackle or rhonchi or use of accessory muscles. GI: Obese, soft, nontender, nondistended with normal bowel sounds. EXTREMITIES: Right BKA and mild left leg edema noted. NEUROLOGIC: Conscious, alert, oriented x3 with appropriate mental status. Cranial nerves 2 through 12 are intact. DIAGNOSTIC DATA: Renal function panel showed sodium 139, potassium 3.9, chloride 101, CO2 of 33, BUN 36, creatinine 1.23, glucose 81, calcium 8.8, phosphorus 3.8, and albumin 3.2. Magnesium is 2.0. ASSESSMENT: 1. Acute kidney injury: Due to hemodynamic factors related to volume overload and cardiac dysfunction. Improved. Creatinine improved 1.19, but is beginning to creep up to 1.2 due to diuresis. BUN also is trending up suggestive of intravascular contraction. 2. Volume overload: Due to congestive heart failure. Clinically improved. However, air entry at both lung bases is markedly diminished. Concerning for an effusion. 3. Iron deficiency anemia, status post IV iron treatment. 4. Acute on chronic diastolic heart failure. Treatment as per Cardiology. 5. Hypertension: Control is still suboptimal. The patient is currently on metoprolol. Irbesartan was discontinued by Cardiology. 6. Acid-base balance and electrolytes: The patient is having some contraction alkalosis. Otherwise, electrolytes are unremarkable. PLAN: We will get a chest x-ray to rule out pleural effusion. We will recommend the escalation of diuretics. Recommencement of irbesartan to get that after of metoprolol to get adequate BP control is recommended. The patient can be discharged from renal point of view. Outpatient followup in 2 to 3 weeks is recommended. We will sign off at this time. Job ID: [id number]
--- NOTE | 2018-07-29 08:12 | RAD ---
FRadiograph chest one view: 07/29/2018 7:34 AM HISTORY: Follow up congestive heart failure in 87-year-old male COMPARISON: 07/25/2018 FINDINGS: Bilateral pleural effusions. Cardiomegaly. Signs of previous CABG. Right apical thickening/opacificat ion. Interval development of diffuse haziness of the right mid and lower lung zones. Slight interval improvement in the haziness in the left midlung zone. IMPRESSION: 1. No interval change in bilateral pleural effusions. 2. Shift in attenuation of the bilateral lungs could could perhaps represent shift in bilateral pleur al effusions since the prior study due to positional differences.
[2018-07-29] MEDS: Lactinex Tablet PO SCH (09:19)
[2018-07-29] MEDS: Aspirin 81 mg Enteric Coated Tablet PO SCH (09:19)
[2018-07-29] MEDS: Heparin 5,000 UNITS/ML VIAL SC SCH ×2 (09:19→20:01)
[2018-07-29] MEDS: Escitalopram Oxalate 10 mg Tablet PO SCH (09:19)
[2018-07-29] MEDS: Ferrous Sulfate 325 MG TAB PO SCH (09:19)
[2018-07-29] MEDS: Docusate 100 MG CAP PO SCH (09:21)
[2018-07-29] MEDS: Famotidine 20 MG TAB PO SCH (09:21)
[2018-07-29] MEDS: Furosemide 80 MG TAB PO SCH ×2 (09:21→15:41)
[2018-07-29] MEDS: Spironolactone 25 MG TAB PO SCH (09:21)
--- NOTE | 2018-07-29 10:21 | PDOC.CTH ---
Cardiology Progress Note - Subjective No complaints today. Wants to go home. - Objective Vital Signs Temp Pulse Resp BP Pulse Ox 07/29/18 07:50 98.7 F 98 18 126/69 07/29/18 07:45 95 12 07/29/18 02:41 97.8 F 95 20 149/69 H 97 07/29/18 00:03 97 07/29/18 00:02 104 H 20 97 07/28/18 23:56 87 20 Weight 216 lb 8 oz 07/28/18 07/29/18 07/30/18 06:59 06:59 06:59 Intake Total 720 1345 Output Total 1375 700 Balance -655 645 - Physical Examination General/Neuro: alert & oriented x3 Neck: no JVD present Lungs: CTA, other: (decreased BS at bases bilaterally) Heart: other: (IRR) Abdomen: NT/ND Extremities: other: (Right stump with minimal edema; LLE +1) - Telemetry Telemetry Rhythm: AF; rate-controlled. - Labs Result Diagrams: 07/28/18 04:37 07/29/18 04:24 Troponin/CKMB Troponin I 0.029 ng/mL (< 0.028) H 07/26/18 12:01 - Assessment/Plan 1. Acute on chronic diastolic CHF 2. Chronic AF 3. HTN 4. LUISITO/CKD-3 5. DNR Overall improved. Good output and response to increased lasix. Can be discharged in the near future and lasix titrated as outpatient.
[2018-07-29] MEDS: methylPREDNISolone Sod Succ 40 MG VIAL IVP SCH (11:00)
--- NOTE | 2018-07-29 12:39 | PDOC.PN ---
- Subjective Encounter Start Date: 07/29/18 Encounter Start Time: 12:38 Patient seen and examined, no famliy at bedside, all questions answered. - Objective Resuscitation Status - Order Detail: 07/25/18 21:28 Resuscitation Status Routine Resuscitation Status: DNAR: NO Resuscitation Discussed with: patient and son Vital Signs & Weight: Vital Signs (12 hours) Temp Pulse Resp BP Pulse Ox 07/29/18 07:50 98.7 F 98 18 126/69 07/29/18 07:45 95 12 07/29/18 02:41 97.8 F 95 20 149/69 H 97 Weight Weight 216 lb 8 oz I&O: 07/28/18 07/29/18 07/30/18 06:59 06:59 06:59 Intake Total 720 1345 Output Total 1375 700 Balance -655 645 Result Diagrams: 07/28/18 04:37 07/29/18 04:24 Phys Exam - Physical Examination Constitutional: NAD HEENT: PERRLA, moist MMs, sclera anicteric Neck: no nodes, no JVD, supple Respiratory: no wheezing, no rales, no rhonchi Cardiovascular: RRR, no significant murmur, no rub Gastrointestinal: soft, non-tender, no distention, positive bowel sounds Musculoskeletal: pulses present, edema present Dx/Plan (1) Iron deficiency anemia Code(s): D50.9 - IRON DEFICIENCY ANEMIA, UNSPECIFIED Status: Acute (2) Acute on chronic heart failure Code(s): I50.9 - HEART FAILURE, UNSPECIFIED Status: Acute (3) CAD (coronary artery disease) Code(s): I25.10 - ATHSCL HEART DISEASE OF [place] CORONARY ARTERY W/O ANG PCTRS Status: Chronic Comment: Chronic, stable, continue general med mgmt (4) Chronic a-fib Code(s): I48.2 - CHRONIC ATRIAL FIBRILLATION Status: Chronic (5) HTN (hypertension) Code(s): I10 - ESSENTIAL (PRIMARY) HYPERTENSION Status: Chronic - Plan * will increase lasix, CXR shows more volume than prior, repeat CXR in 48hrs * renal and cardio following * cont IV diuretics * case and plan d/w patient at length, he understood and agreed with this plan
[2018-07-29] MEDS: Atorvastatin Calcium 20 MG TAB PO SCH (20:01)
[2018-07-29] MEDS: Ezetimibe 10 MG TAB PO SCH (20:01)
[2018-07-30] MEDS: Ipratropium Bromide 2.5 ml Neb NEB SCH ×4 (00:27→18:17)
[2018-07-30 07:12] LABS: #Lymphocytes 1.7 thou/uL (1.20-3.40); #Monocytes 1.1 thou/uL (0.11-0.59); %Basophils 0.1 % (0.0-1.0); %Eosinophils 0.2 % (0.0-10.0); %Monocytes 8.7 % (0.0-10.0); %Neutrophils 77.9 % (42.0-75.0); Hemoglobin 9.1 g/dL (14.0-18.0); Mean Corpuscular Hemoglobin 26.7 pg (27.0-31.0); Mean Corpuscular Volume 89.1 fL (78.0-98.0); Mean Platelet Volume 7.7 fL (7.4-10.4); Platelet Count 342 thou/uL (130-400); RBC Distribution Width 18.6 % (11.5-14.5); Red Blood Cell (RBC) Count 3.42 mill/uL (4.70-6.10); White Blood Cell (WBC) Count 12.9 thou/uL (4.8-10.8)
[2018-07-30 07:27] LABS: Anion Gap 17 mmol/L (10-20); BUN (Urea Nitrogen) 39 mg/dL (8.4-25.7); Calc. Creatinine Clearance 49 mL/min (70-130); Calcium 8.9 mg/dL (7.8-10.44); Carbon Dioxide 28 mmol/L (23-31); Chloride 98 mmol/L (98-107); Estimated GFR-MDRD 49; Glucose 77 mg/dL (83-110); Potassium 3.5 mmol/L (3.5-5.1); Sodium 139 mmol/L (136-145)
[2018-07-30] MEDS: Escitalopram Oxalate 10 mg Tablet PO SCH (08:30)
[2018-07-30] MEDS: Lactinex Tablet PO SCH (08:31)
[2018-07-30] MEDS: Furosemide 80 MG TAB PO SCH ×2 (08:31→15:15)
[2018-07-30] MEDS: Ferrous Sulfate 325 MG TAB PO SCH (08:31)
[2018-07-30] MEDS: Famotidine 20 MG TAB PO SCH (08:31)
[2018-07-30] MEDS: Docusate 100 MG CAP PO SCH (08:31)
[2018-07-30] MEDS: Spironolactone 25 MG TAB PO SCH (08:31)
[2018-07-30] MEDS: Aspirin 81 mg Enteric Coated Tablet PO SCH (08:32)
[2018-07-30] MEDS: Heparin 5,000 UNITS/ML VIAL SC SCH ×2 (08:32→20:12)
[2018-07-30] MEDS ORDERED: guaiFENesin ER 600 MG TAB PO SCH (09:15)
--- NOTE | 2018-07-30 09:50 | PRG ---
DATE OF SERVICE: 07/30/2018 SUBJECTIVE: An 87-year-old being followed up for INNA, superimposed on CKD 3. The patient continues to cough with sputum production, still requiring oxygen. Lasix was transitioned to oral yesterday. Continue to diurese well with current diuretic regimen. No fever. Leg swelling has improved significantly. OBJECTIVE: VITAL SIGNS: Temperature 98.3, pulse 90, respiratory rate 20, SpO2 of 95% on 2 L nasal cannula, blood pressure 139/73. GENERAL: Elderly male, in no distress. Afebrile. HEENT: Normocephalic, atraumatic. Oral mucosa is moist. CARDIOVASCULAR: Regular rhythm and rate with normal heart sounds 1 and 2. RESPIRATORY: Fair air entry bilaterally with some transmitted sounds. No obvious rhonchi were appreciated. There is no use of accessory muscles. GI: Obese, soft, nontender, nondistended with normal bowel sounds. EXTREMITIES: Right BKA. Mild left leg edema noted. NEUROLOGIC: Conscious, alert, and oriented x3 with appropriate mental status. Cranial nerves 2 through 12 are intact. LABORATORY DATA: CBC showed WBC count of 12.9, hemoglobin of 9.1, platelet of 342. BMP showed sodium 139, potassium 3.5, chloride 98, CO2 of 28, BUN 39, creatinine 1.36, glucose 77, calcium 8.9. X-RAY STUDIES: Chest x-ray performed on July 29 showed bilateral pleural effusions, cardiomegaly, and right apical thickening and opacification. Interval development of diffuse haziness of the right mid and lower lung zones noted. There is some slight improvement in the haziness in the left mid lung zone. ASSESSMENT: 1. Acute kidney injury: Due to hemodynamic factors related to volume overload and cardiac dysfunction, improved initially with diuretics to another of 1.19, but creatinine is creeping up to 1.3 today due to escalation of diuretics. BUN also is trending up, suggestive of intravascular contraction. 2. Volume overload: Due to congestive heart failure. Clinically improved. The patient is getting close to euvolemia. Weight is down to 208 from 224 on Ari2018. 3. Iron deficiency anemia status post IV iron treatment. 4. Acute on chronic diastolic heart failure. 5. Hypertension. Control is acceptable. 6. Acid-base balance and electrolyte. Potassium is 3.5 and CO2 is improving. 7. Persistent cough with sputum production. Concerning for possible pneumonia given chest x-ray. PLAN: Escalation of diuretics is recommended as the patient is close to euvolemia. We will get sputum culture, and start the patient on Mucinex. We will defer antibiotic therapy to the primary attending. The patient can follow up in the outpatient in 2 to 3 weeks if discharged. Job ID: [id number]
--- NOTE | 2018-07-30 12:10 | PDOC.PN ---
- Subjective Encounter Start Date: 07/30/18 Encounter Start Time: 12:08 Patient seen and examined, no new issues or complaints overnight, all questions answered. - Objective Resuscitation Status - Order Detail: 07/25/18 21:28 Resuscitation Status Routine Resuscitation Status: DNAR: NO Resuscitation Discussed with: patient and son Vital Signs & Weight: Vital Signs (12 hours) Temp Pulse Resp BP Pulse Ox 07/30/18 08:30 98.9 F 101 H 18 133/59 L 95 07/30/18 03:30 98.3 F 90 20 139/73 95 07/30/18 00:27 88 20 93 L Weight Weight 208 lb 4.8 oz I&O: 07/29/18 07/30/18 07/31/18 06:59 06:59 06:59 Intake Total 1345 300 Output Total 700 1400 Balance 645 -1100 Result Diagrams: 07/30/18 06:59 07/30/18 06:59 Phys Exam - Physical Examination Constitutional: NAD HEENT: PERRLA, moist MMs, sclera anicteric Neck: no nodes, no JVD, supple Respiratory: no wheezing, no rales, no rhonchi Cardiovascular: RRR, no significant murmur Gastrointestinal: soft, non-tender, no distention Musculoskeletal: pulses present, edema present (1+) Dx/Plan (1) Iron deficiency anemia Code(s): D50.9 - IRON DEFICIENCY ANEMIA, UNSPECIFIED Status: Acute (2) Acute on chronic heart failure Code(s): I50.9 - HEART FAILURE, UNSPECIFIED Status: Acute (3) CAD (coronary artery disease) Code(s): I25.10 - ATHSCL HEART DISEASE OF [place] CORONARY ARTERY W/O ANG PCTRS Status: Chronic Comment: Chronic, stable, continue general med mgmt (4) Chronic a-fib Code(s): I48.2 - CHRONIC ATRIAL FIBRILLATION Status: Chronic (5) HTN (hypertension) Code(s): I10 - ESSENTIAL (PRIMARY) HYPERTENSION Status: Chronic - Plan * will get CXR in AM, if CXR better and patient improving will DC in AM * continue current plan of care for now * case and plan d/w patient at length, he understood and agreed with this plan.
[2018-07-30] MEDS: Acetaminophen 325 MG TAB PO PRN (15:21)
[2018-07-30] MEDS: Ezetimibe 10 MG TAB PO SCH (20:11)
[2018-07-30] MEDS: guaiFENesin ER 600 MG TAB PO SCH (20:11)
[2018-07-30] MEDS: Atorvastatin Calcium 20 MG TAB PO SCH (20:12)
[2018-07-31] MEDS: Ipratropium Bromide 2.5 ml Neb NEB SCH ×5 (00:24→23:19)
[2018-07-31 05:28] LABS: Anisocytosis SLIGHT = 6-15 cells (100X) (0-5/hpf); Band 2 % (5-11); Hypochromia SLIGHT = 6-15 cells (100X) (0-5/hpf); Lymphocytes 3 % (21-51); MDiff Complete? YES; Mean Corpuscular HGB CONC 32.1 g/dL (32.0-36.0); Mean Corpuscular Hemoglobin 27.9 pg (27.0-31.0); Mean Corpuscular Volume 86.7 fL (78.0-98.0); Mean Platelet Volume 8.4 fL (7.4-10.4); Monocytes 7 % (0-10); Neutrophil 88 % (42-75); Platelet Count 317 thou/uL (130-400); Platelet Morphology Comment Appears Adequate; RBC Distribution Width 19.2 % (11.5-14.5); Red Blood Cell (RBC) Count 3.25 mill/uL (4.70-6.10)
[2018-07-31 05:30] LABS: Anion Gap 12 mmol/L (10-20); BUN (Urea Nitrogen) 39 mg/dL (8.4-25.7); Calc. Creatinine Clearance 47 mL/min (70-130); Calcium 8.8 mg/dL (7.8-10.44); Carbon Dioxide 34 mmol/L (23-31); Chloride 94 mmol/L (98-107); Estimated GFR-MDRD 47; Glucose 90 mg/dL (83-110); Potassium 3.3 mmol/L (3.5-5.1); Sodium 137 mmol/L (136-145)
--- NOTE | 2018-07-31 07:43 | RAD ---
FChest one view HISTORY: Dyspnea. Congestion. Follow-up. COMPARISON: 07/29/2018. FINDINGS: Cardiac silhouette is magnified and upper limits of normal. Pulmonary vasculature remains e ngorged. Bilateral pleural fluid and patchy bibasilar infiltrates are similar in appearance to the pr ior exam. Mediastinum is midline with postoperative changes and aortic calcification. No evidence of pneumothorax. Postoperative changes right shoulder. IMPRESSION: Bilateral pleural fluid, pulmonary vascular congestion, and other findings are stable.
--- NOTE | 2018-07-31 08:24 | PDOC.PN ---
- Subjective Encounter Start Date: 07/31/18 Encounter Start Time: 08:22 Patient seen and examined, states he's having some coughing, no other issues - Objective Resuscitation Status - Order Detail: 07/25/18 21:28 Resuscitation Status Routine Resuscitation Status: DNAR: NO Resuscitation Discussed with: patient and son Vital Signs & Weight: Vital Signs (12 hours) Temp Pulse Resp BP Pulse Ox 07/31/18 07:20 98.0 F 90 20 125/61 92 L 07/31/18 06:47 93 L 07/31/18 06:46 103 H 20 93 L 07/31/18 03:14 99.6 F 99 20 139/71 95 07/31/18 00:24 94 16 95 Weight Weight 205 lb 4.8 oz I&O: 07/30/18 07/31/18 08/01/18 06:59 06:59 06:59 Intake Total 300 690 Output Total 1400 300 Balance -1100 390 Result Diagrams: 07/31/18 04:35 07/31/18 04:35 Phys Exam - Physical Examination Constitutional: NAD HEENT: PERRLA, moist MMs, sclera anicteric Neck: no nodes, no JVD, supple Respiratory: no wheezing, no rales, no rhonchi Cardiovascular: RRR, no significant murmur, no rub Gastrointestinal: soft, non-tender, no distention Musculoskeletal: pulses present, edema present Dx/Plan (1) Iron deficiency anemia Code(s): D50.9 - IRON DEFICIENCY ANEMIA, UNSPECIFIED Status: Acute (2) Acute on chronic heart failure Code(s): I50.9 - HEART FAILURE, UNSPECIFIED Status: Acute (3) CAD (coronary artery disease) Code(s): I25.10 - ATHSCL HEART DISEASE OF [place] CORONARY ARTERY W/O ANG PCTRS Status: Chronic Comment: Chronic, stable, continue general med mgmt (4) Chronic a-fib Code(s): I48.2 - CHRONIC ATRIAL FIBRILLATION Status: Chronic (5) HTN (hypertension) Code(s): I10 - ESSENTIAL (PRIMARY) HYPERTENSION Status: Chronic - Plan * WBC rising with patinet complaining of cough, CXR this AM shows some infiltrates, will start patient on azithromycin * repeat CBC and BMP in AM * blood cultures also ordered * patient to have bed at 45degress * PT evaluation also requested
[2018-07-31] MEDS: Docusate 100 MG CAP PO SCH (08:51)
[2018-07-31] MEDS: Aspirin 81 mg Enteric Coated Tablet PO SCH (08:51)
[2018-07-31] MEDS: Escitalopram Oxalate 10 mg Tablet PO SCH (08:51)
[2018-07-31] MEDS: Furosemide 80 MG TAB PO SCH ×2 (08:51→13:20)
[2018-07-31] MEDS: Spironolactone 25 MG TAB PO SCH (08:51)
[2018-07-31] MEDS: Lactinex Tablet PO SCH (08:51)
[2018-07-31] MEDS: guaiFENesin ER 600 MG TAB PO SCH ×2 (08:51→20:46)
[2018-07-31] MEDS: Famotidine 20 MG TAB PO SCH (08:52)
[2018-07-31] MEDS: Ferrous Sulfate 325 MG TAB PO SCH (08:52)
[2018-07-31] MEDS: Heparin 5,000 UNITS/ML VIAL SC SCH ×2 (08:52→20:46)
[2018-07-31] MEDS: Acetaminophen 325 MG TAB PO PRN (08:59)
[2018-07-31] MEDS: Azithromycin 500 MG in Sodium Chloride 0.9% 250 ML 250 ML IVPB SCH (09:19)
[2018-07-31] MEDS ORDERED: Metolazone 5 MG TAB PO SCH (09:30)
[2018-07-31] MEDS ORDERED: Potassium Chloride 20 MEQ TAB PO SCH ×2 (09:45→17:00)
--- NOTE | 2018-07-31 09:58 | PRG ---
DATE OF SERVICE: 07/31/2018 SUBJECTIVE: Mr. Dunne is frustrated with being in the hospital, states he wants to be released. OBJECTIVE: VITAL SIGNS: Blood pressure 125/61. Pulse 90, it is irregular. LUNGS: Clear. CARDIAC: Irregularly irregular. ABDOMEN: Soft and nontender. EXTREMITIES: There is still moderate edema. LABORATORY DATA: Chest x-ray looks like congestive heart failure. ASSESSMENT: 1. Diastolic heart failure, somewhat refractory to treatment. 2. Renal function, estimated GFR is 47. PLAN: 1. Give him next dose of metolazone. 2. Replete potassium. Potassium is 3.3. PROGNOSIS: Guarded. Job ID: [id number]
--- NOTE | 2018-07-31 16:39 | PRG ---
DATE OF SERVICE: 07/31/2018 SUBJECTIVE: An 87-year-old male, admitted due to worsening shortness of breath and swelling. Nephrology is following for acute kidney injury superimposed on chronic kidney disease. The patient is diuresing well and reports improvement. Repeat chest x-ray however showed persistent pulmonary congestion as well as bilateral pleural effusion. The patient denied nausea, vomiting, or diarrhea. OBJECTIVE: VITAL SIGNS: Temperature 97.5, pulse 89, respiratory rate 20, SpO2 of 93 on 1 L nasal cannula oxygen, blood pressure is 139/65. GENERAL: Elderly male, in no obvious distress. Afebrile, anicteric, acyanotic. HEENT: Normocephalic and atraumatic. CARDIOVASCULAR: Irregular rhythm and rate. RESPIRATORY: Fair air entry bilateral, decreased at both bases posteriorly. GI: Obese, soft, nontender, nondistended with normal bowel sounds. EXTREMITIES: Right BKA stump and left leg edema noted. NEUROLOGIC: Conscious, alert, and oriented x3 with appropriate mental status. DIAGNOSTIC DATA: BMP showed sodium 137, potassium 3.3, chloride 94, CO2 of 34, BUN 39, creatinine 1.42, glucose 90, calcium 8.8. CBC showed WBC count of 14, hemoglobin of 9.0, platelets of 317. ASSESSMENT AND PLAN: 1. Acute kidney injury: Due to hemodynamic factors related to cardiac dysfunction. Improved initially to a joshua of 1.1. Creatinine is however trending up to 1.4 at this time due to escalation of diuretics. The patient however continued to have bilateral pleural effusion and infiltrates. We will continue to monitor renal function with diuretic therapy. 2. Volume overload: The patient still has bilateral leg edema, pleural effusion, and pulmonary congestion. Escalation of diuretic with addition of thiazide diuretic is noted. We will monitor renal function. 3. Hypokalemia: Due to diuretics. We will replete with potassium chloride. We will also get serum magnesium. 4. Right pulmonary infiltrates: Most likely due to congestion, but the patient also has cough with sputum production, concerning for bronchitis. Recommend commencement of antibiotics. This was discussed with primary attending. 5. Acute on chronic diastolic heart failure: Deferred to bank worker. 6. Hypertension: Control is acceptable at this time. 7. Get BMP and magnesium in the a.m. Job ID: [id number]
[2018-07-31] MEDS: Ezetimibe 10 MG TAB PO SCH (20:46)
[2018-07-31] MEDS: Atorvastatin Calcium 20 MG TAB PO SCH (20:46)
[2018-08-01 05:56] LABS: #Lymphocytes 1.5 thou/uL (1.20-3.40); #Monocytes 1.1 thou/uL (0.11-0.59); #Neutrophils 12.2 thou/uL (1.40-6.50); %Basophils 0.2 % (0.0-1.0); %Eosinophils 0.1 % (0.0-10.0); %Lymphocytes 10.2 % (21.0-51.0); %Monocytes 7.6 % (0.0-10.0); Hemoglobin 9.7 g/dL (14.0-18.0); Mean Corpuscular Hemoglobin 26.7 pg (27.0-31.0); Mean Corpuscular Volume 89.1 fL (78.0-98.0); Mean Platelet Volume 8.2 fL (7.4-10.4); Platelet Count 334 thou/uL (130-400); RBC Distribution Width 19.5 % (11.5-14.5); Red Blood Cell (RBC) Count 3.62 mill/uL (4.70-6.10); White Blood Cell (WBC) Count 14.8 thou/uL (4.8-10.8)
[2018-08-01 06:02] LABS: Anion Gap 17 mmol/L (10-20); BUN (Urea Nitrogen) 48 mg/dL (8.4-25.7); Calc. Creatinine Clearance 41 mL/min (70-130); Calcium 9.4 mg/dL (7.8-10.44); Carbon Dioxide 31 mmol/L (23-31); Chloride 94 mmol/L (98-107); Estimated GFR-MDRD 40; Glucose 103 mg/dL (83-110); Potassium 3.6 mmol/L (3.5-5.1); Sodium 138 mmol/L (136-145)
[2018-08-01] MEDS: Ipratropium Bromide 2.5 ml Neb NEB SCH ×3 (07:06→18:43)
--- NOTE | 2018-08-01 09:03 | PRG ---
DATE OF SERVICE: 08/01/2018 SUBJECTIVE: Mr. Dunne actually is feeling better today. He looks like he is breathing easier. OBJECTIVE: VITAL SIGNS: His blood pressure 140/70, pulse is 100, it is atrial fibrillation. LUNGS: Clear. CARDIAC: Irregularly irregular. ABDOMEN: Soft. The I and O yesterday does not really seem to be likely to be reliable, but the weight is recorded as 12 pounds down, so it is hard to say, but it looks like he is at least diuresed well. ASSESSMENT: 1. Diastolic heart failure, it is improved. 2. Renal function has worsened. PLAN: 1. Agree withholding diuretics today. Rechecking tomorrow. 2. Okay with me to move to medical bed instead of telemetry. His rhythm seems stable. 3. As is frequently the case, these patients with diastolic heart failure are difficult when they become more euvolemic, the renal function may worsen. Withholding diuretics today. Reassessing tomorrow. 4. The patient is severely iron deficient on the blood test done on the , I do not see that he has received intravenous iron. We will give the patient intravenous iron. Job ID: [id number]
[2018-08-01] MEDS ORDERED: Vancomycin HCl 1 GM in Premix Bag 1 BAG IVPB SCH (09:30)
[2018-08-01] MEDS ORDERED: Vancomycin HCl 1.25 GM in Sodium Chloride 0.9% 250 ML 250 ML IVPB SCH (10:00)
--- NOTE | 2018-08-01 10:02 | PRG ---
DATE OF SERVICE: 08/01/2018 SUBJECTIVE: The patient reports feeling better. Desires to go home. Denies chest pain or fever. Shortness of breath is better. OBJECTIVE: VITAL SIGNS: Temperature 98.2, pulse 102, respiratory rate 20, SpO2 of 96% on 2 L nasal cannula, blood pressure is 126/70. GENERAL: Elderly male, in no obvious distress. Afebrile. Anicteric. CARDIOVASCULAR: Irregular rhythm and rate. Normal heart sounds 1 and 2. RESPIRATORY: Fair air entry bilaterally with transmitted sounds. Air entry is decreased on the left side at the base. GI: Abdomen is obese, soft, nontender, nondistended with normal bowel sounds. EXTREMITIES: Mild left leg edema. Right BKA noted. NEUROLOGIC: Conscious, alert, oriented x3 with appropriate mental status. Cranial nerves 2 through 12 are intact. Tremor 1+. DIAGNOSTIC DATA: CBC showed WBC count of 14.8, hemoglobin of 9.7, platelet of 334. BMP shows sodium 138, potassium 3.6, chloride 94, CO2 of 31, BUN 48, creatinine 1.62, glucose 103, calcium 9.4. Of note, creatinine has gone up from a joshua of 1.1 to 1.62. Chest x-ray performed on July 31 showed bilateral pleural effusion with pulmonary vascular congestion. This seems to be similar to prior exam. There is no pneumothorax. Blood culture obtained on July 31, 2018 is growing gram-positive cocci, 2/2. ASSESSMENT AND PLAN: 1. Acute kidney injury on chronic kidney disease, stage 3: Due to hemodynamic factors related to excessive diuretics with intravascular contraction. We will discontinue diuretics at this time and recheck renal function in the morning. 2. Gram-positive bacteremia. We will start the patient empirically on IV vancomycin. Pharmacy to dose in line with renal dysfunction. 3. Volume overload: Due to diastolic heart failure. Significantly improved. 4. Hypokalemia: Repleted. We will monitor. 5. Acute on chronic diastolic heart failure: Defer treatment to Cardiology. 6. Bilateral pulmonary infiltrates: There seems to be some component of bronchitis since the patient is now on antibiotics. 7. Hypertension: BP control is acceptable. We will get renal function and magnesium in the morning as well as vanc trough. Job ID: [id number]
[2018-08-01] MEDS: Nafcillin 2 GM in Sodium Chloride 0.9% 100 ML IVPB SCH ×3 (12:05→23:22)
[2018-08-01] MEDS: Aspirin 81 mg Enteric Coated Tablet PO SCH (13:11)
[2018-08-01] MEDS: Docusate 100 MG CAP PO SCH (13:11)
[2018-08-01] MEDS: Lactinex Tablet PO SCH (13:11)
[2018-08-01] MEDS: Famotidine 20 MG TAB PO SCH (13:12)
[2018-08-01] MEDS: Ferrous Sulfate 325 MG TAB PO SCH (13:12)
[2018-08-01] MEDS: Heparin 5,000 UNITS/ML VIAL SC SCH ×2 (13:12→20:31)
[2018-08-01] MEDS: guaiFENesin ER 600 MG TAB PO SCH ×2 (13:12→20:31)
[2018-08-01] MEDS: Escitalopram Oxalate 10 mg Tablet PO SCH (13:12)
[2018-08-01] MEDS: Iron, Sodium Ferric Gluconate 250 MG in Sodium Chloride 0.9% 100 ML IVPB SCH ×2 (15:51→21:26)
--- NOTE | 2018-08-01 16:27 | CON ---
DATE OF CONSULTATION: 08/01/2018 REASON FOR CONSULTATION: Bacteremia. HISTORY OF PRESENT ILLNESS: An 87-year-old gentleman, admitted on July 25, who has a history of ischemic cardiomyopathy with CHF, peripheral vascular disease and previous right BKA, paroxysmal AFib, who was admitted because of worsening dyspnea. Initial findings included BP 130/70, pulse 72, O2 sat 100 on oxygen supplementation, respiratory rate 18, and temperature 97.7. The exam remarkable for a 2/6 systolic murmur at the aortic area. Sinus rhythm, inspiratory lung crackles on soft abdomen without distention. The initial laboratory results included white cell count 8.2, hemoglobin 8.2, platelets 331 with 76% neutrophils. The creatinine was 1.45 and sodium 136. BNP was 261. Albumin 3.2. Urinalysis was essentially normal. The patient had a chest x-ray on admission, which demonstrated borderline cardiomegaly, bibasilar pleural and parenchymal changes. The patient was given Lasix and Cardiology was consulted. The patient had an echocardiogram, which revealed EF 55% to 60%, mildly dilated left atrium and trace tricuspid regurgitation. The aortic valve was not particularly stenotic. The patient has remained afebrile through the hospital stay except for a low-grade temperature elevation more recently up to 99.8. He did have elevation of the white cell count up to 14.8. Two sets of blood cultures have been obtained and it revealed Staphylococcus aureus, which appears to be methicillin-susceptible. Currently, Mr. Dunne is awake, but he is not very alert. He is able to give me precise information or reliable information. He denies any headaches. No chest pain or abdominal pain. He is voiding in the diaper. PAST MEDICAL HISTORY: Includes hyperlipidemia, AFib, CHF, sleep apnea, peripheral vascular disease, ischemic cardiomyopathy, prior bypass graft surgery, and right BKA. SOCIAL HISTORY: The patient is a former smoker, stopped many years ago. No alcoholic beverage use. FAMILY HISTORY: Pancreatic cancer, lung cancer. ALLERGIES: NEGATIVE. CURRENT MEDICATIONS: 1. Tylenol. 2. Floranex. 3. Xanax. 4. Ecotrin. 5. Lipitor. 6. Tessalon. 7. Colace. 8. Lexapro. 9. Zetia. 10. Pepcid. 11. Mucinex. 12. Ipratropium. 13. Nafcillin. 14. Zolpidem. PHYSICAL EXAMINATION: VITAL SIGNS: T-max 99.8 recently, blood pressure 126/70, pulse 97 to 102, respirations 16 to 20, and O2 sat 94% to 96%. GENERAL: Appears in no distress, but he is not very with it. He is not able to answer specific questions and does not follow commands very well. SKIN: Shows a peripheral IV access. Does not have a Chakraborty catheter. No areas of skin breakdown noted. No lymphadenopathy. HEENT: Ocular movements conjugate. Sclerae are white. Pupils are 1 mm, reactive. Conjunctivae are somewhat pale. Oral cavity moist, still few teeth in place with the expected decay. NECK: Supple. No jugular vein distention or carotid bruits. LUNGS: Symmetric air entry and basilar inspiratory crackles. HEART: S1 and S2. No murmurs noted. Regular rate. ABDOMEN: Soft, not distended. Question of bladder distention. No ascites. EXTREMITIES: No joint inflammatory activity. The patient has evidence of left antecubital fossa thrombophlebitis with an indurated cord and erythema surrounding it. Pulses are diminished in dorsalis pedis, left side. Plantar responses are indifferent. NEUROLOGIC: He is awake, but does not follow commands. LABORATORY DATA: Latest white cell count 14.8, hemoglobin 9.7, MCV 89, platelets 334, 82% neutrophils. Creatinine is at 1.62. Sodium 138, carbon dioxide 31. Iron 13 and TIBC 301. Urinalysis was normal. Microbiology, noted above. ASSESSMENT: 1. Renal insufficiency. 2. Peripheral vascular disease. 3. Ischemic cardiomyopathy with worsening dyspnea, which led to admission. 4. Hospital-acquired bacteremia due to septic thrombophlebitis, left antecubital fossa, this is likely from IV access that was left in place from the emergency room admission. The organism is methicillin-susceptible Staphylococcus aureus. DISCUSSION: This represents another case of nosocomial bacteremia due to an antecubital fossa septic thrombophlebitis. Unfortunately, we have 2-4 of those every year in the hospital and at this time, we have MSSA identified and we will order a PICC line when bacteremia resolves and treat him for at least 4 weeks with IV therapy , probably cefazolin. We do not find any evidence of distant dissemination at this point in time and we will continue monitoring sites such as spine, long bones and joints, lungs, and heart. Job ID: [id number] [id number]
--- NOTE | 2018-08-01 17:29 | PRG ---
DATE OF SERVICE: 08/01/2018 SUBJECTIVE: The patient is seen and examined at the bedside. He is trying to follow my commands, but he is quite shaky. OBJECTIVE: VITAL SIGNS: Blood pressure is 126/70, pulse is 102, temperature is 98.2, respirations 16, O2 saturation is 94% on room air. He is on 1 L by nasal cannula. HEENT: His pupils are responding to light properly. Sclerae are nonicteric. Conjunctiva is palish. Oral mucosa is slightly dry. NECK: Supple. LUNGS: Breath sounds diminished at both bases with crackles bilaterally at both bases. No wheezing. HEART: S1, S2, irregular. No S3. No S4. ABDOMEN: Soft, obese, nontender. EXTREMITIES: 1 to 2+ peripheral edema similar bilaterally. He is fluid overloaded. NEUROLOGICAL: He does not know where he is. He does not know the time at all. He is alert and oriented x0. He is able to move his all four extremities. He tries to follow my commands. LABORATORY DATA: White count of 14.8, hemoglobin 9.7, hematocrit 32.3, platelet count is 334,000. Sodium of 138, potassium 3.6, chloride 94, BUN 48, creatinine 1.62, glucose is ranging from 77 to 103. Microbiology, 2/2 blood cultures growing Staphylococcus aureus, which is methicillin sensitive. IMPRESSION: 1. Congestive heart failure acute on chronic, secondary to ischemic cardiomyopathy. 2. Atrial fibrillation, rate controlled. 3. Peripheral vascular disease. 4. Coronary artery disease status post coronary artery bypass grafting. 5. Possible delirium secondary to infection. 6. Sepsis. The patient was seen by Dr. Reynoso for staphylococcal bacteremia. He thinks that decubitus is the source of this infection. He recommends to do the PICC line and IV antibiotic therapy for few weeks. We will continue current regimen and I hope his mental condition will improve with improvement of his sepsis. Job ID: [id number]
[2018-08-01] MEDS ORDERED: Acetaminophen/Codeine 30-300mg Tablet PO PRN (19:56)
[2018-08-01] MEDS: Atorvastatin Calcium 20 MG TAB PO SCH (20:31)
[2018-08-01] MEDS: Ezetimibe 10 MG TAB PO SCH (20:31)
[2018-08-01] MEDS: Acetaminophen/Codeine 30-300mg Tablet PO PRN (20:32)
[2018-08-01] MEDS: Azithromycin 500 MG in Sodium Chloride 0.9% 250 ML 250 ML IVPB SCH (21:09)
[2018-08-02] MEDS: Ipratropium Bromide 2.5 ml Neb NEB SCH ×5 (00:20→23:42)
[2018-08-02] MEDS ORDERED: Iron, Sodium Ferric Gluconate 250 MG in Sodium Chloride 0.9% 100 ML IVPB SCH (04:00)
[2018-08-02 05:00] LABS: Albumin 3.3 g/dL (3.4-4.8); Anion Gap 14 mmol/L (10-20); BUN (Urea Nitrogen) 55 mg/dL (8.4-25.7); BUN/Creatinine Ratio 31.25; Calc. Creatinine Clearance 35 mL/min (70-130); Calcium 9.2 mg/dL (7.8-10.44); Carbon Dioxide 34 mmol/L (23-31); Chloride 92 mmol/L (98-107); Estimated GFR-MDRD 37; Glucose 124 mg/dL (83-110); Phosphorus 4.6 mg/dL (2.3-4.7); Potassium 3.2 mmol/L (3.5-5.1); Sodium 137 mmol/L (136-145)
[2018-08-02] MEDS: Nafcillin 2 GM in Sodium Chloride 0.9% 100 ML IVPB SCH ×4 (07:57→21:11)
[2018-08-02] MEDS: Escitalopram Oxalate 10 mg Tablet PO SCH ×2 (09:57→10:03)
[2018-08-02] MEDS: Famotidine 20 MG TAB PO SCH (09:57)
[2018-08-02] MEDS: Docusate 100 MG CAP PO SCH (09:58)
[2018-08-02] MEDS: guaiFENesin ER 600 MG TAB PO SCH ×2 (09:58→21:13)
[2018-08-02] MEDS: Aspirin 81 mg Enteric Coated Tablet PO SCH (09:58)
[2018-08-02] MEDS: Ferrous Sulfate 325 MG TAB PO SCH (09:59)
[2018-08-02] MEDS: Heparin 5,000 UNITS/ML VIAL SC SCH ×2 (09:59→21:14)
[2018-08-02] MEDS ORDERED: Potassium Chloride 20 MEQ TAB PO SCH (11:00)
--- NOTE | 2018-08-02 11:28 | PRG ---
DATE OF SERVICE: 08/02/2018 SUBJECTIVE: Elderly male seen in followup for acute kidney injury. The patient reports feeling better. Denied fever. The patient however is angry that he is still in the hospital. OBJECTIVE: VITAL SIGNS: Temperature 98.2, pulse 67, respiratory rate 20, SpO2 of 95% on 3 L nasal cannula, blood pressure is 129/79. GENERAL: Elderly male, in no obvious distress. Afebrile. Anicteric. CARDIOVASCULAR: Irregular rhythm and rate with normal heart sounds one and two. RESPIRATORY: Fair air entry bilaterally with some transmitted sounds. Air movement is improved in all lung zones. GI: Obese, soft, nontender, nondistended with normal bowel sounds. EXTREMITIES: Trace to mild bilateral leg edema. Right BKA noted. NEUROLOGIC: Conscious, alert, and oriented x3 with appropriate mental status. Cranial nerves 2 through 12 are intact. DIAGNOSTIC DATA: Renal function panel showed sodium 137, potassium 3.2, chloride 92, CO2 34, BUN 55, creatinine 1.76, glucose 124, calcium 9.2, phosphorus 4.6, magnesium 2.0, albumin 3.3. ASSESSMENT: 1. Acute kidney injury superimposed on chronic kidney disease stage 3. This is due to hemodynamic factors related to excessive diuretics leading to intravascular contraction. Creatinine is still trending up despite discontinuation of diuretics. Oral intake is acceptable. We will avoid IV fluid rehydration due to history of congestive heart failure. We will continue to monitor renal function. 2. Hypokalemia, recurrent. We will replete with low-dose potassium chloride. 3. Acute on chronic diastolic heart failure: Management as per Cardiology. 4. Methicillin-susceptible Staphylococcus aureus bacteremia: Now on oxacillin. Deferred to primary attending and ID. 5. Hypertension: Control is acceptable. 6. Get renal function in the morning. Avoid nephrotoxic agents. Recommend renal dosing of oral medications. Job ID: [id number]
[2018-08-02] MEDS: Lactinex Tablet PO SCH (11:39)
[2018-08-02] MEDS: Acetaminophen/Codeine 30-300mg Tablet PO PRN (13:32)
--- NOTE | 2018-08-02 14:18 | PDOC.PN ---
- Subjective Encounter Start Date: 08/02/18 Encounter Start Time: 14:16 Subjective: feels OK but angry that he didn't get his lunch -: does not answer most of the Qs due to anger - Objective Resuscitation Status - Order Detail: 07/25/18 21:28 Resuscitation Status Routine Resuscitation Status: DNAR: NO Resuscitation Discussed with: patient and son REGI Reviewed: Yes Vital Signs & Weight: Vital Signs (12 hours) Temp Pulse Resp BP Pulse Ox 08/02/18 11:51 83 16 93 L 08/02/18 11:40 98.1 F 93 18 118/55 L 95 08/02/18 08:00 97.8 F 103 H 18 135/65 98 08/02/18 07:55 98 08/02/18 06:59 79 16 95 08/02/18 04:00 98.2 F 67 20 129/79 94 L Weight Weight 197 lb I&O: 08/01/18 08/02/18 08/03/18 06:59 06:59 06:59 Intake Total 1060 180 Balance 1060 180 Result Diagrams: 08/01/18 04:40 08/02/18 04:36 Additional Labs: Microbiology 07/28/18 11:13 Stool Stool Occult Blood ([place]) - Final 07/27/18 09:15 Rectum Stool Occult Blood ([place]) - Final 07/31/18 10:31 Venous blood - Right Arm Blood Culture - Preliminary Staphylococcus aureus 07/31/18 10:30 Venous blood - Right Hand Blood Culture - Preliminary Gram Positive [place] Laboratory Tests 07/27/18 07/28/18 07/29/18 03:59 04:37 04:24 Creatinine 1.19 1.28 1.23 07/30/18 07/31/18 08/01/18 06:59 04:35 04:40 Creatinine 1.36 H 1.42 H 1.62 H 08/02/18 04:36 Creatinine 1.76 H Phys Exam - Physical Examination Constitutional: NAD HEENT: PERRLA, moist MMs, sclera anicteric, oral pharynx no lesions Neck: no nodes, no JVD, supple, full ROM Respiratory: no wheezing, no rales, no rhonchi, clear to auscultation bilateral coarse breath sounds Cardiovascular: RRR, no significant murmur, no rub Gastrointestinal: soft, non-tender, no distention, positive bowel sounds Musculoskeletal: no edema, pulses present Neurological: non-focal, normal sensation, moves all 4 limbs Psychiatric: normal affect Skin: no rash Dx/Plan (1) Acute on chronic diastolic CHF (congestive heart failure), NYHA class 3 Code(s): I50.33 - ACUTE ON CHRONIC DIASTOLIC (CONGESTIVE) HEART FAILURE Status : Acute (2) Sepsis Code(s): A41.9 - SEPSIS, UNSPECIFIED ORGANISM Status: Acute (3) Bacteremia due to methicillin susceptible Staphylococcus aureus (MSSA) Code(s): R78.81 - BACTEREMIA Status: Acute (4) INNA (acute kidney injury) Code(s): N17.9 - ACUTE KIDNEY FAILURE, UNSPECIFIED Status: Acute (5) Iron deficiency anemia Code(s): D50.9 - IRON DEFICIENCY ANEMIA, UNSPECIFIED Status: Chronic Comment : Iv iron given 08/01/18 (6) CAD (coronary artery disease) Code(s): I25.10 - ATHSCL HEART DISEASE OF [place] CORONARY ARTERY W/O ANG PCTRS Status: Chronic Comment: Chronic, stable, continue general med mgmt (7) Chronic a-fib Code(s): I48.2 - CHRONIC ATRIAL FIBRILLATION Status: Chronic (8) HTN (hypertension) Code(s): I10 - ESSENTIAL (PRIMARY) HYPERTENSION Status: Chronic (9) Peripheral vascular disease Code(s): I73.9 - PERIPHERAL VASCULAR DISEASE, UNSPECIFIED Status: Chronic - Plan continue antibiotics, PT/OT, respiratory therapy, incentive spirometry, out of bed/ambulate, DVT proph w/heparin moniotr renal FX. Diuretics on hold -: cardiology and nephrology recs appreciated -: cont ABx. await final ID recs -: HD stable. -: am labs.supportive care. DC when cleared by all consultants * . Review of Systems - Review of Systems Other: limited due to dementia - Medications/Allergies Allergies/Adverse Reactions: Allergies Allergy/AdvReac Type Severity Reaction Status Date / Time No Known Allergies Allergy Verified 07/25/18 21:26 Medications: Current Medications Acetaminophen (Tylenol) 650 mg PO Q4H PRN PRN Reason: Headache/Fever/Mild Pain (1-3) Last Admin: 07/31/18 08:59 Dose: 650 mg Acetaminophen/Codeine Phosphate (Tylenol #3) 1 tab PO Q6H PRN PRN Reason: Moderate Pain (4-6) Last Admin: 08/02/18 13:32 Dose: 1 tab Acetaminophen/Codeine Phosphate (Tylenol #3) 2 tab PO Q6H PRN PRN Reason: Moderate to Severe Pain (6-10) Acidophilus (Floranex) 1 tab PO DAILY [facility] Last Admin: 08/02/18 11:39 Dose: 1 tab Alprazolam (Xanax) 0.5 mg PO HS PRN PRN Reason: Anxiety Aspirin (Ecotrin) 81 mg PO DAILY [facility] Last Admin: 08/02/18 09:58 Dose: 81 mg Atorvastatin Calcium (Lipitor) 20 mg PO HS [facility] Last Admin: 08/01/18 20:31 Dose: 20 mg Benzonatate (Tessalon) 100 mg PO Q6H PRN PRN Reason: . Last Admin: 07/27/18 17:37 Dose: 100 mg Docusate Sodium (Colace) 100 mg PO DAILY [facility] Last Admin: 08/02/18 09:58 Dose: 100 mg Ezetimibe (Zetia) 10 mg PO HS [facility] Last Admin: 08/01/18 20:31 Dose: 10 mg Escitalopram Oxalate (Lexapro) 20 mg PO DAILY [facility] Last Admin: 08/02/18 10:03 Dose: 10 mg Famotidine (Pepcid) 20 mg PO QAM [facility] Last Admin: 08/02/18 09:57 Dose: 20 mg Ferrous Sulfate (Feosol) 325 mg PO DAILY [facility] Last Admin: 08/02/18 09:59 Dose: 325 mg Guaifenesin (Mucinex) 600 mg PO Q12HR [facility] Last Admin: 08/02/18 09:58 Dose: 600 mg Heparin Sodium (Porcine) (Heparin) 5,000 units SC BID [facility] Last Admin: 08/02/18 09:59 Dose: 5,000 units Nafcillin Sodium 2 gm/ Sodium (Chloride) 100 mls @ 100 mls/hr IVPB 0200,0800, 1400,2000 [facility] Ipratropium [place] (Atrovent) 2.5 ml NEB [id number] PRN PRN Reason: SOB &/or Wheezing Ipratropium [place] (Atrovent) 2.5 ml NEB [id number] [facility] Last Admin: 08/02/18 11:51 Dose: 2.5 ml Metoprolol Succinate (Toprol Xl) 50 mg PO DAILY [facility] Last Admin: 08/02/18 09:58 Dose: 50 mg Ondansetron HCl (Zofran) 4 mg IVP Q6H PRN PRN Reason: Nausea/Vomiting Ondansetron HCl (Zofran Odt) 4 mg SL Q6H PRN PRN Reason: Nausea/Vomiting Senna/Docusate Sodium (Senokot S) 2 tab PO BIDPRN PRN PRN Reason: Constipation Sodium Chloride (Flush - Normal Saline) 10 ml IVF Q12H PRN PRN Reason: Saline Flush Last Admin: 08/02/18 07:58 Dose: 10 ml Zolpidem Tartrate (Ambien) 5 mg PO HSPRN PRN PRN Reason: Insomnia
[2018-08-02] MEDS: Ezetimibe 10 MG TAB PO SCH (21:13)
[2018-08-02] MEDS: Atorvastatin Calcium 20 MG TAB PO SCH (21:13)
[2018-08-03] MEDS: Nafcillin 2 GM in Sodium Chloride 0.9% 100 ML IVPB SCH ×4 (02:39→20:34)
[2018-08-03 05:56] LABS: Anion Gap 17 mmol/L (10-20); BUN (Urea Nitrogen) 58 mg/dL (8.4-25.7); BUN/Creatinine Ratio 34.32; Calc. Creatinine Clearance 37 mL/min (70-130); Calcium 8.9 mg/dL (7.8-10.44); Carbon Dioxide 32 mmol/L (23-31); Chloride 91 mmol/L (98-107); Estimated GFR-MDRD 38; Glucose 83 mg/dL (83-110); Phosphorus 4.2 mg/dL (2.3-4.7); Potassium 3.1 mmol/L (3.5-5.1); Sodium 137 mmol/L (136-145)
[2018-08-03] MEDS: Ipratropium Bromide 2.5 ml Neb NEB SCH ×4 (06:38→23:17)
[2018-08-03] MEDS ORDERED: Potassium Chloride 20 MEQ TAB PO SCH (09:15)
--- NOTE | 2018-08-03 09:54 | PRG ---
DATE OF SERVICE: 08/03/2018 SUBJECTIVE: An 87-year-old male being seen for INNA on CKD. The patient is also getting antibiotics for MSSA bacteremia. Shortness of breath and swelling have improved. Denied fever, nausea, or vomiting. OBJECTIVE: VITAL SIGNS: Temperature 97.7, pulse 81, respiratory rate 20, SpO2 100% on 2 L nasal cannula, and blood pressure is 118/72. GENERAL: Elderly male, in no distress. CARDIOVASCULAR: Regular rhythm and rate. Normal heart sounds 1 and 2. RESPIRATORY: Fair air entry bilateral. GI: Obese, soft, nontender, and nondistended with normal bowel sounds. EXTREMITIES: [id number] left leg edema noted. Right BKA noted. NEUROLOGIC: Conscious, alert, and oriented x3. Cranial nerves 2 through 12 are intact. DIAGNOSTIC DATA: Renal function panel today showed sodium 137, potassium 3.1, chloride 91, CO2 of 32, BUN 58, creatinine 1.69, glucose 83, calcium 8.9, phosphorus 4.2, albumin 3.0. Weight is 194 pounds. ASSESSMENT AND PLAN: 1. Acute kidney injury on chronic kidney disease stage 3, due to hemodynamic factors related to excessive diuretics. The patient has been off diuretics since 2 days and renal function has remained stable if not worse. The patient also was started on antibiotics, initially vancomycin and later nafcillin. Drug-induced nephritis is a concern. We will continue to hold diuretics and get repeat urinalysis as well as urine electrolytes and urine eosinophils. Given history of diastolic heart failure, we will not be starting IV fluid on this patient. [place] oral intake is advised. 2. Hypokalemia: We will replete with potassium chloride. 3. We will also get serum magnesium. 4. Methicillin-susceptible Staphylococcus aureus bacteremia, now on nafcillin. 5. Hypertension. Control is acceptable. Job ID: [id number]
[2018-08-03] MEDS: Aspirin 81 mg Enteric Coated Tablet PO SCH ×2 (10:25→17:29)
[2018-08-03] MEDS: Escitalopram Oxalate 10 mg Tablet PO SCH ×2 (10:25→16:30)
[2018-08-03] MEDS: Ferrous Sulfate 325 MG TAB PO SCH (10:26)
[2018-08-03] MEDS: Docusate 100 MG CAP PO SCH (10:27)
[2018-08-03] MEDS: Famotidine 20 MG TAB PO SCH ×2 (10:27→17:29)
[2018-08-03] MEDS: Heparin 5,000 UNITS/ML VIAL SC SCH ×2 (10:28→20:34)
[2018-08-03] MEDS: Lactinex Tablet PO SCH (10:28)
[2018-08-03 12:55] VITALS: BMI 27.8
--- NOTE | 2018-08-03 13:43 | PRG ---
DATE OF SERVICE: SUBJECTIVE: Artis Dunne is feeling about the same. Not much interaction with the examiner. OBJECTIVE: VITAL SIGNS: His vital signs are normal including the temperature. LUNGS: Symmetric. Clear breath sounds. HEART: S1 and S2 regular rate. ABDOMEN: Soft, not distended. LABORATORY DATA: White cell count is 14.8, hemoglobin 9.7, platelets 334. Sodium 137, creatinine 1.69. He is voiding in the diaper. There is a question of bladder distention. He is currently receiving some p.r.n. medications, nafcillin. ASSESSMENT AND DISCUSSION: Renal insufficiency, peripheral vascular disease, ischemic cardiomyopathy with worsening dyspnea and then hospital-acquired bacteremia due to methicillin-sensitive Staph aureus associated with septic thrombophlebitis of the left antecubital fossa likely from prior IV access which was established upon his earlier admission. The patient to continue IV antimicrobial therapy, probably eventually transition to a cefazolin dose adjusted for renal function. We will have to continue monitoring for sites of dissemination including possibility of septic pulmonary infection, endocarditis, spinal infection in the bone and joint areas. Job ID: [id number]
--- NOTE | 2018-08-03 14:02 | PDOC.PN ---
- Subjective Encounter Start Date: 08/03/18 Encounter Start Time: 14:01 Subjective: wants to go home and stop "all this" -: does not answer any Qs apprpriately.Angry for being here -: refuses to get out of bed or work w PT - Objective Resuscitation Status - Order Detail: 07/25/18 21:28 Resuscitation Status Routine Resuscitation Status: DNAR: NO Resuscitation Discussed with: patient and son REGI Reviewed: Yes Vital Signs & Weight: Vital Signs (12 hours) Temp Pulse Resp BP Pulse Ox 08/03/18 12:04 71 20 98 08/03/18 10:15 97.5 F L 103 H 20 120/58 L 100 08/03/18 06:38 79 18 98 08/03/18 04:50 97.7 F 81 20 118/72 100 Weight Admit Weight 225 lb 2 oz Weight 194 lb 6 oz I&O: 08/02/18 08/03/18 08/04/18 06:59 06:59 06:59 Intake Total 180 1370 Balance 180 1370 Result Diagrams: 08/01/18 04:40 08/03/18 05:16 Additional Labs: Microbiology 07/28/18 11:13 Stool Stool Occult Blood ([place]) - Final 07/27/18 09:15 Rectum Stool Occult Blood ([place]) - Final 07/31/18 10:31 Venous blood - Right Arm Blood Culture - Preliminary Staphylococcus aureus 07/31/18 10:30 Venous blood - Right Hand Blood Culture - Preliminary Staphylococcus aureus Laboratory Tests 07/25/18 07/26/18 07/27/18 18:35 05:43 03:59 Creatinine 1.45 H 1.35 H 1.19 07/28/18 07/29/18 07/30/18 04:37 04:24 06:59 Creatinine 1.28 1.23 1.36 H 07/31/18 08/01/18 08/02/18 04:35 04:40 04:36 Creatinine 1.42 H 1.62 H 1.76 H 08/03/18 05:16 Creatinine 1.69 H Phys Exam - Physical Examination Constitutional: NAD wet cough HEENT: PERRLA, moist MMs, sclera anicteric, oral pharynx no lesions Neck: no nodes, no JVD, supple, full ROM Respiratory: no wheezing, no rales, clear to auscultation bilateral few rhonchi and coarse breath sounds Cardiovascular: RRR, no significant murmur Gastrointestinal: soft, non-tender, no distention, positive bowel sounds Musculoskeletal: no edema, pulses present R BKA Neurological: non-focal, normal sensation, moves all 4 limbs Psychiatric: normal affect, A&O x 3 Skin: no rash Dx/Plan (1) Acute on chronic diastolic CHF (congestive heart failure), NYHA class 3 Code(s): I50.33 - ACUTE ON CHRONIC DIASTOLIC (CONGESTIVE) HEART FAILURE Status : Acute Comment: diuretics on hold due to INNA (2) Sepsis Code(s): A41.9 - SEPSIS, UNSPECIFIED ORGANISM Status: Acute Comment: MSSA in blood (3) Bacteremia due to methicillin susceptible Staphylococcus aureus (MSSA) Code(s): R78.81 - BACTEREMIA Status: Acute (4) INNA (acute kidney injury) Code(s): N17.9 - ACUTE KIDNEY FAILURE, UNSPECIFIED Status: Acute (5) Iron deficiency anemia Code(s): D50.9 - IRON DEFICIENCY ANEMIA, UNSPECIFIED Status: Chronic Comment : Iv iron given 08/01/18 (6) CAD (coronary artery disease) Code(s): I25.10 - ATHSCL HEART DISEASE OF [place] CORONARY ARTERY W/O ANG PCTRS Status: Chronic Comment: Chronic, stable, continue general med mgmt (7) Chronic a-fib Code(s): I48.2 - CHRONIC ATRIAL FIBRILLATION Status: Chronic Comment: rate controlled on BB. No OAC as recent GIB 03/2018 (8) HTN (hypertension) Code(s): I10 - ESSENTIAL (PRIMARY) HYPERTENSION Status: Chronic (9) Peripheral vascular disease Code(s): I73.9 - PERIPHERAL VASCULAR DISEASE, UNSPECIFIED Status: Chronic - Plan PT/OT, respiratory therapy, incentive spirometry, DVT proph w/lovenox, DVT proph w/SCDs cont nafcillin.Will need PICC & protracted course of ABx -: Awaiting final ID recs -: renal Fx stable. cont to hold diuretics.Avoid nephrotoxins -: add IS.cont mucinex.am labs.watch for development of PNA -: pt refuses to move & high risk of PNA/aspiration * .Joselito transfer to medical.HD stable * DNR Review of Systems - Review of Systems Other: unable to obtain as pt does not answer any Qs directly - Medications/Allergies Allergies/Adverse Reactions: Allergies Allergy/AdvReac Type Severity Reaction Status Date / Time No Known Allergies Allergy Verified 07/25/18 21:26 Medications: Current Medications Acetaminophen (Tylenol) 650 mg PO Q4H PRN PRN Reason: Headache/Fever/Mild Pain (1-3) Last Admin: 07/31/18 08:59 Dose: 650 mg Acetaminophen/Codeine Phosphate (Tylenol #3) 1 tab PO Q6H PRN PRN Reason: Moderate Pain (4-6) Last Admin: 08/02/18 13:32 Dose: 1 tab Acetaminophen/Codeine Phosphate (Tylenol #3) 2 tab PO Q6H PRN PRN Reason: Moderate to Severe Pain (6-10) Acidophilus (Floranex) 1 tab PO DAILY [facility] Last Admin: 08/03/18 10:28 Dose: 1 tab Alprazolam (Xanax) 0.5 mg PO HS PRN PRN Reason: Anxiety Aspirin (Ecotrin) 81 mg PO DAILY [facility] Last Admin: 08/03/18 10:25 Dose: 81 mg Atorvastatin Calcium (Lipitor) 20 mg PO HS [facility] Last Admin: 08/02/18 21:13 Dose: 20 mg Benzonatate (Tessalon) 100 mg PO Q6H PRN PRN Reason: . Last Admin: 07/27/18 17:37 Dose: 100 mg Docusate Sodium (Colace) 100 mg PO DAILY [facility] Last Admin: 08/03/18 10:27 Dose: 100 mg Ezetimibe (Zetia) 10 mg PO HS [facility] Last Admin: 08/02/18 21:13 Dose: 10 mg Escitalopram Oxalate (Lexapro) 20 mg PO DAILY [facility] Last Admin: 08/03/18 10:25 Dose: 20 mg Famotidine (Pepcid) 20 mg PO QAM [facility] Last Admin: 08/03/18 10:27 Dose: 20 mg Ferrous Sulfate (Feosol) 325 mg PO DAILY [facility] Last Admin: 08/03/18 10:26 Dose: 325 mg Guaifenesin (Mucinex) 600 mg PO Q12HR [facility] Last Admin: 08/02/18 21:13 Dose: 600 mg Heparin Sodium (Porcine) (Heparin) 5,000 units SC BID [facility] Last Admin: 08/03/18 10:28 Dose: 5,000 units Nafcillin Sodium 2 gm/ Sodium (Chloride) 100 mls @ 100 mls/hr IVPB 0200,0800, 1400,2000 [facility] Last Admin: 08/03/18 10:23 Dose: 100 mls Ipratropium [place] (Atrovent) 2.5 ml NEB [id number] PRN PRN Reason: SOB &/or Wheezing Ipratropium [place] (Atrovent) 2.5 ml NEB [id number] [facility] Last Admin: 08/03/18 12:04 Dose: 2.5 ml Metoprolol Succinate (Toprol Xl) 50 mg PO DAILY [facility] Last Admin: 08/03/18 10:26 Dose: 50 mg Ondansetron HCl (Zofran) 4 mg IVP Q6H PRN PRN Reason: Nausea/Vomiting Ondansetron HCl (Zofran Odt) 4 mg SL Q6H PRN PRN Reason: Nausea/Vomiting Senna/Docusate Sodium (Senokot S) 2 tab PO BIDPRN PRN PRN Reason: Constipation Sodium Chloride (Flush - Normal Saline) 10 ml IVF Q12H PRN PRN Reason: Saline Flush Last Admin: 08/02/18 21:14 Dose: 10 ml Zolpidem Tartrate (Ambien) 5 mg PO HSPRN PRN PRN Reason: Insomnia
--- NOTE | 2018-08-03 14:36 | PDOC.EVN ---
Event Note - Event Note Event Note: ACP NOTE- Pt keeps repeating that he doesn't want any further treatment and would just like to go back home. When i asked him that it would mean stopping antibiotics and transferring him home with possibility that he can from current infection ,he said , 'that's fine.I just want to go home". called his daughter Ms Doll on phone and discussed Pt's wishes. She reports that her brothet and her are aware of Pt's wishes and hospice has been consulted by [place] already where he resides.She wants to continue to pursue the Hospice and wants pt to be DCed back to [facility]. She feels that her father is mentally competent based on her experience with him and he has made his Wishes clear multiple times that he majo not want any more Rx.Neither her nor her Brother Mr Francisco have MPOA but they are both in agreement for the Hospice , as is the Patient. will Consult Palliative care team and hospice. Cont current care for now. TOTAL TIME SPENT IN ACP DISCUSSION 18 MINUTES.
[2018-08-03] MEDS: guaiFENesin ER 600 MG TAB PO SCH ×2 (17:30→20:33)
[2018-08-03 18:28] LABS: Bilirubin Negative (Negative); Blood, Urine Negative (Negative); Clarity CLEAR (Clear); Glucose, Urine (Dipstick) Negative (Negative); Leukocyte Negative (Negative); Nitrite Negative (Negative); Protein, Urine (Dipstick) Negative (Neg-Trace); Specific Gravity, Urine 1.014 (1.002-1.036)
[2018-08-03 18:30] LABS: Bacteria/HPF None Seen HPF (None Seen); Hyaline Casts/LPF 0-3 HYALINE CAST LPF (0-3 Hyaline); Pathc Cast-AUWi Flag 0.27 (0-2.49); RBC/HPF 0-3 HPF (0-3); Squamous Epithelial 0-3 HPF (0-3); WBC/HPF 0-3 HPF (0-3)
[2018-08-03 18:56] LABS: Creatinine, Urine 50.52 mg/dL (63-166)
[2018-08-03] MEDS: Atorvastatin Calcium 20 MG TAB PO SCH (20:33)
[2018-08-03] MEDS: Ezetimibe 10 MG TAB PO SCH (20:33)
[2018-08-04] MEDS: Nafcillin 2 GM in Sodium Chloride 0.9% 100 ML IVPB SCH ×2 (02:13→08:27)
[2018-08-04 06:43] LABS: Albumin 2.8 g/dL (3.4-4.8); Anion Gap 13 mmol/L (10-20); BUN (Urea Nitrogen) 49 mg/dL (8.4-25.7); BUN/Creatinine Ratio 34.75; Calc. Creatinine Clearance 44 mL/min (70-130); Calcium 8.5 mg/dL (7.8-10.44); Carbon Dioxide 35 mmol/L (23-31); Chloride 91 mmol/L (98-107); Estimated GFR-MDRD 47; Glucose 95 mg/dL (83-110); Phosphorus 3.1 mg/dL (2.3-4.7); Potassium 3.7 mmol/L (3.5-5.1); Sodium 135 mmol/L (136-145)
[2018-08-04] MEDS: Ipratropium Bromide 2.5 ml Neb NEB SCH (08:24)
[2018-08-04] MEDS: Lactinex Tablet PO SCH (08:25)
[2018-08-04] MEDS: Ferrous Sulfate 325 MG TAB PO SCH (08:25)
[2018-08-04] MEDS: guaiFENesin ER 600 MG TAB PO SCH (08:25)
[2018-08-04] MEDS: Docusate 100 MG CAP PO SCH (08:25)
[2018-08-04] MEDS: Escitalopram Oxalate 10 mg Tablet PO SCH ×2 (08:26→08:27)
[2018-08-04] MEDS: Famotidine 20 MG TAB PO SCH (08:27)
[2018-08-04] MEDS: Aspirin 81 mg Enteric Coated Tablet PO SCH (08:27)
[2018-08-04] MEDS: Heparin 5,000 UNITS/ML VIAL SC SCH (08:27)
[2018-08-04] MEDS ORDERED: guaiFENesin ER 600 MG TAB PO SCH (09:00)
[2018-08-04 11:56] VITALS: BP 110/59; TEMP 97.9
--- NOTE | 2018-08-05 07:09 | DIS ---
DATE OF ADMISSION: 07/25/2018 DATE OF DISCHARGE: 08/04/2018 CONDITION: At the time of discharge, stable but guarded. DISCHARGE DISPOSITION: Back to [facility] with Hospice. HOSPICE COMPANY: [employer]. DISCHARGE DIAGNOSES: 1. Acute on chronic diastolic congestive heart failure, [place] Heart Association Class 3. 2. Sepsis. 3. Bacteremia due to methicillin-resistant Staphylococcus aureus, treated with nafcillin in the hospital. 4. Acute kidney injury. 5. Iron deficiency anemia. 6. Coronary artery disease. 7. Chronic atrial fibrillation. 8. Hypertension. 9. Peripheral vascular disease. INHOUSE CONSULTATION: 1. Cardiology, Dr. Sauer and Dr. Hinton. 2. Infectious Disease, Dr. Reynoso. 3. Nephrology, Dr. Ruma Yu. PROCEDURES DONE IN THE HOSPITAL: 1. Renal ultrasound on 07/26/2018, which did not show any hydronephrosis on either side. 2. Transthoracic echocardiogram which shows EF of 55% to 60% without any significant wall motion abnormalities. 3. Multiple chest x-rays, most recently 07/31/2018, which shows bilateral pleural effusion and pulmonary vascular congestion. DISCHARGE MEDICATIONS: Resume home medications. Otherwise as per the Hospice Team. The patient is on the following home medications. 1. Lasix 20 mg daily. 2. Aspirin 81 mg daily. 3. Lopressor 25 mg p.o. b.i.d. 4. Protonix 40 mg p.o. b.i.d. 5. Lexapro 20 mg daily. 6. Zetia 10 mg daily. 7. Ferrous sulfate 325 mg daily. P.r.n. medications include, 1. Tylenol. 2. Mucinex. 3. Tessalon. PRIMARY CARE PHYSICIAN: Dr. Ruvalcaba. HISTORY OF PRESENTING ILLNESS: Mr. Dunne is an 87-year-old male with past medical history of chronic diastolic congestive heart failure, peripheral vascular disease with right-sided BKA, paroxysmal atrial fibrillation, chronic kidney disease stage 3, hypertension, and anemia: Who presented to the emergency room from [facility] for complaints of worsening shortness of breath as well as lower extremity edema. Upon presentation, he was found to have signs and symptoms suggestive of acute congestive heart failure exacerbation. He was started on diuretics and echocardiogram was ordered. He was also found to have acute renal insufficiency upon presentation and Nephrology was also consulted. Please see admission history and physical dictated by Dr. Conde on 07/25/2018. HOSPITAL COURSE: Mr. Dunne was seen by Cardiology and was diuresed. Unfortunately, his kidney function worsened, so diuresis was held. His decompensated congestive heart failure improved significantly. Because of the renal insufficiency, his Avapro was also discontinued. His heart rate remained stable while in the hospital. His renal function was followed by Nephrology as well. Dr. Yu did a renal ultrasound which did not show any hydronephrosis. His renal function did improve to a great extent. The patient was given IV iron for iron deficiency anemia. He had low-grade temperatures and his white count elevated to 14.8 and he was seen by Infectious Disease. Blood cultures and urine cultures were obtained. His 2/2 blood cultures grew MSSA. This was treated with IV antibiotics namely nafcillin in the hospital. The plan was to wait until the bacteremia clears and get a PICC line done and treat him with protracted course of IV antibiotics in the outpatient setting. However, the patient exhibited belligerent behavior and was very adamant that he does not want any of the treatment. His family was contacted as well as palliative care team. The patient was found to have adequate mental capacity to make his own decisions and his family agreed. It was discussed with his daughter and son and they reported that he already has pending hospice evaluation in the senior care. The patient agreed to take the risk of a life-threatening infection, but he did not want any more treatment, so it was stopped and hospice team was consulted. He was accepted back to [facility] with hospice today. He was seen and examined prior to discharge and I discussed the discharge plan with his daughter at bedside and the patient himself who verbalized understanding. PHYSICAL EXAMINATION: VITAL SIGNS: This morning, vital signs are stable. Blood pressure 110/59. GENERAL: No acute distress. Awake, alert, and oriented x3. CHEST: Clear to auscultation bilaterally. HEART: Irregularly irregular rhythm. ABDOMEN: Soft, nontender, and nondistended. EXTREMITIES: Right BKA and no lower extremity edema. This patient remains at high risk for decompensation quickly and also high risk of admission if his condition decompensate and he decides to revoke hospice. Otherwise, would not be unexpected in the next few weeks if the infection is not completely cleared. At this time, the patient has refused any further treatments and will be transferred back to [facility]. TOTAL TIME SPENT: 35 minutes. Job ID: [id number]
--- NOTE | 2018-08-05 12:09 | EKG ---
Test Reason : Blood Pressure : / mmHG Vent. Rate : 093 BPM Atrial Rate : 187 BPM P-R Int : 000 ms QRS Dur : 104 ms QT Int : 374 ms P-R-T Axes : 000 042 -29 degrees QTc Int : 465 ms Atrial fibrillation Cannot rule out Anterior infarct , age undetermined Abnormal ECG Confirmed by SILVA ACEVES, YONG ([id number]), associate entertainment editor CRISTELA NEGRO ([id number]) on 08/05/2018 12:09:04 PM Referred By: Confirmed By:YONG ASCENCIO MD
== END 2018-08-04 14:11 | DRG 291 ==
LOC: ERS 17:37 → 2NO 19:19 → T4-A 08-03 18:21
PROVIDERS: ADMIT Internal Medicine; ATTEND Internal Medicine
DX: I13.0 Hypertensive heart and chronic kidney disease with heart failure and stage 1 through stage 4 chronic kidney disease, or unspecified chronic kidney disease (principal); I50.33 Acute on chronic diastolic (congestive) heart failure; A41.02 Sepsis due to Methicillin resistant Staphylococcus aureus; T80.1XXA Vascular complications following infusion, transfusion and therapeutic injection, initial encounter; N18.4 Chronic kidney disease, stage 4 (severe); E87.3 Alkalosis; N17.9 Acute kidney failure, unspecified; Z66 Do not resuscitate; D63.1 Anemia in chronic kidney disease; G47.33 Obstructive sleep apnea (adult) (pediatric); D50.9 Iron deficiency anemia, unspecified; I25.10 Atherosclerotic heart disease of native coronary artery without angina pectoris; I48.2 Chronic atrial fibrillation; I73.9 Peripheral vascular disease, unspecified; I48.0 Paroxysmal atrial fibrillation; E78.00 Pure hypercholesterolemia, unspecified; I25.5 Ischemic cardiomyopathy; N40.0 Benign prostatic hyperplasia without lower urinary tract symptoms; E87.6 Hypokalemia; Y95 Nosocomial condition; I80.8 Phlebitis and thrombophlebitis of other sites; Z95.1 Presence of aortocoronary bypass graft; Z79.01 Long term (current) use of anticoagulants; Z89.511 Acquired absence of right leg below knee; Z79.82 Long term (current) use of aspirin; Z79.51 Long term (current) use of inhaled steroids; Z79.899 Other long term (current) drug therapy; Z99.89 Dependence on other enabling machines and devices
CPT/HCPCS: 36415; 36416; 71045; 76770; 80048; 80053; 80069; 81001; 81003; 82274; 82306; 82550; 82570; 82728; 83540; 83550; 83690; 83735; 83880; 83970; 84156; 84300; 84484; 84540; 85025; 87040; 87077; 87149; 87186; 89190; 93005; 93306; 93798; 94640; 95811; 96374; J0456; J1644; J1940; J2916; J2920; J3370; J3490; J7050; S0032